=== PATIENT | male | born 1940 | race Hispanic/Latino ===

== ENCOUNTER 2017-04-01 15:34 | Inpatient (IN) | payer MEDICARE ==
--- NOTE | 2017-04-01 18:11 | CP.PCM.HP ---
History of Present Illness - History of Present Illness History of Present Illness: 76 yo male with history of COPD and peripheral neuropathy of the right foot admitted in [facility] on 03/29/2017 because of fracture of the right hip sustained after falling in his kitchen. He was transferred to [facility] for right THR to be done by Dr Will. Pt was medically cleared by Dr Be and also had cardiac clearance from Dr Mccracken. Present on Admission - Present on Admission Any Indicators Present on Admission: No History of DVT/PE: No History of Uncontrolled Diabetes: No Urinary Catheter: No Decubitus Ulcer Present: No Review of Systems - Review of Systems All systems: reviewed and no additional remarkable complaints except (aside from those mentioned above, 12 point system review were negative by me) Past Patient History - Infectious Disease Hx of Infectious Diseases: None - Tetanus Immunizations Tetanus Immunization: Unknown - Past Medical History & Family History Past Medical History?: Yes Past Family History: Reviewed and not pertinent - Past Social History Smoking Status: Heavy Smoker > 10 Cigarettes Daily Alcohol: > 2 Drinks/Day Drugs: Denies - CARDIAC Hx Cardiac Disorders: No - PULMONARY Hx Respiratory Disorders: Yes (SMOKES PPD) Hx Chronic Obstructive Pulmonary Disease (COPD): Yes Hx Pneumonia: Yes - NEUROLOGICAL Hx Neurological Disorder: Yes Other/Comment: 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) he took before - HEENT Hx Sinusitis: Yes - RENAL Hx Chronic Kidney Disease: No - ENDOCRINE/METABOLIC Hx Endocrine Disorders: No - HEMATOLOGICAL/ONCOLOGICAL Hx Blood Disorders: No - INTEGUMENTARY Hx Dermatological Problems: No - MUSCULOSKELETAL/RHEUMATOLOGICAL Hx Musculoskeletal Disorders: Yes Hx Falls: Yes (03-29-17) Hx Fractures: Yes (RIGHT FEMORAL NECK FX 03-29-17) Other/Comment: torn rotator cuff, right, 1994 - GASTROINTESTINAL Hx Gastrointestinal Disorders: No - GENITOURINARY/GYNECOLOGICAL Hx Genitourinary Disorders: No - PSYCHIATRIC Hx Psychophysiologic Disorder: Yes Hx Depression: Yes Hx Substance Use: No - SURGICAL HISTORY Hx Surgeries: No Hx Orthopedic Surgery: Yes (rotator cuff repair, 1994) - ANESTHESIA Hx Anesthesia: Yes Hx Anesthesia Reactions: No Hx Malignant Hyperthermia: No Meds Allergies/Adverse Reactions: Allergies Allergy/AdvReac Type Severity Reaction Status Date / Time Sulfa (Sulfonamide Allergy SHORTNESS Verified 03/29/17 22:00 Antibiotics) OF BREATH Physical Exam - Constitutional Appears: No Acute Distress - Head Exam Head Exam: ATRAUMATIC - Eye Exam Eye Exam: absent: Scleral icterus - ENT Exam ENT Exam: Mucous Membranes Moist - Neck Exam Neck exam: Negative for: Meningismus - Respiratory Exam Respiratory Exam: absent: Rhonchi, Wheezes, Respiratory Distress - Cardiovascular Exam Cardiovascular Exam: REGULAR RHYTHM, +S1, +S2 - GI/Abdominal Exam GI & Abdominal Exam: Soft. absent: Tenderness - Rectal Exam Rectal Exam: Deferred - Extremities Exam Extremities exam: Negative for: full ROM (limited ROM on right hip) - Neurological Exam Neurological exam: Alert, Oriented x3 - Psychiatric Exam Psychiatric exam: Normal Affect - Skin Skin Exam: Dry, Intact Results - Vital Signs Recent Vital Signs: Last Vital Signs Temp 97.9 F 04/01/17 17:32 Pulse 83 04/01/17 17:32 Resp 20 04/01/17 17:32 BP 106/69 04/01/17 17:32 Pulse Ox 95 04/01/17 17:32 Assessment & Plan (1) Hip fracture, right Status: Acute Comment: admit to telemetry. for right THR in am by Dr Will. NPO from midnight. cardiac clearance approved by Dr Mccracken. medical clearance given by Dr Be (2) COPD (chronic obstructive pulmonary disease) Status: Chronic Comment: asymptomatic (3) Alcoholism Status: Acute Comment: watch for alcohol withdrawal
[2017-04-01 18:25] VITALS: BMI 22.8
[2017-04-01] MEDS ORDERED: Albuterol HFA 90 mcg/actuation (8 g) IH PRN (18:43)
[2017-04-01] MEDS ORDERED: Albuterol 0.083% Inhal Sol (2.5 mg/3 mL) UD INH SCH (20:00)
[2017-04-01] MEDS: Oxycodone/Acetaminophen 5/325 mg Tab PO PRN (20:07)
[2017-04-02 06:20] LABS: BASO % 0.5 % (0.0-2.0); EOS # 0.1 K/uL (0.0-0.7); EOS % 1.8 % (0.0-4.0); LYMPH # 0.8 K/uL (1.0-4.3); LYMPH % 11.3 % (20.0-40.0); MEAN CORPUSCULAR HEMOGLOBIN 32.9 pg (27.0-31.0); MEAN CORPUSCULAR HGB CONC 33.6 g/dL (33.0-37.0); MEAN PLATELET VOLUME 7.8 fl (7.2-11.7); MONO # 0.9 K/uL (0.0-0.8); MONO % 12.9 % (0.0-10.0); NEUT # 5.1 K/uL (1.8-7.0); NEUT % 73.5 % (50.0-75.0); RED CELL DISTRIBUTION WIDTH 15.1 % (11.5-14.5); WHITE BLOOD COUNT 6.9 K/uL (4.8-10.8)
[2017-04-02 06:39] LABS: BLOOD UREA NITROGEN 9 mg/dl (9-20); CALCIUM 8.8 mg/dL (8.4-10.2); CARBON DIOXIDE 24 mmol/L (22-30); CHLORIDE 99 mmol/L (98-107); GFR AFRICAN-AMERICAN > 60; GLUCOSE,RANDOM 92 mg/dL (75-110); POTASSIUM 3.8 MMOL/L (3.6-5.0); SODIUM 131 mmol/l (132-148)
[2017-04-02] MEDS: Oxycodone/Acetaminophen 5/325 mg Tab PO PRN (07:10)
--- NOTE | 2017-04-02 07:12 | CP.PCM.CON ---
History of Present Illness - History of Present Illness History of Present Illness: MABEL: 76 yo male CC" Pain, deformity, inability to bear weight R lower ext HPI- pt a 76 yo who presents with pain and restricted ROM R hip after having susutained a fall saturday afternoon. Pt stabilized at [facility] opver the weekend and is tarnsferred to [facility] 2nd to prblems with [place] OR re: surgical table and equipment for anterior approach to hip arthroplasty Pt transferred to [facility] for definitve surg. Pt given 80 mg Lovemnox Saturday, Pt?Ptt is pending Cardilogic eval pending as well Past Patient History - Infectious Disease Hx of Infectious Diseases: None - Tetanus Immunizations Tetanus Immunization: Unknown - Past Medical History & Family History Past Medical History?: Yes Past Family History: Reviewed and not pertinent - Past Social History Smoking Status: Heavy Smoker > 10 Cigarettes Daily Alcohol: > 2 Drinks/Day Drugs: Denies - CARDIAC Hx Cardiac Disorders: No - PULMONARY Hx Respiratory Disorders: Yes (SMOKES PPD) Hx Chronic Obstructive Pulmonary Disease (COPD): Yes Hx Pneumonia: Yes - NEUROLOGICAL Hx Neurological Disorder: Yes Other/Comment: 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) he took before - HEENT Hx Sinusitis: Yes - RENAL Hx Chronic Kidney Disease: No - ENDOCRINE/METABOLIC Hx Endocrine Disorders: No - HEMATOLOGICAL/ONCOLOGICAL Hx Blood Disorders: No - INTEGUMENTARY Hx Dermatological Problems: No - MUSCULOSKELETAL/RHEUMATOLOGICAL Hx Musculoskeletal Disorders: Yes Hx Falls: Yes (03-29-17) Hx Fractures: Yes (RIGHT FEMORAL NECK FX 03-29-17) Other/Comment: torn rotator cuff, right, 1994 - GASTROINTESTINAL Hx Gastrointestinal Disorders: No - GENITOURINARY/GYNECOLOGICAL Hx Genitourinary Disorders: No - PSYCHIATRIC Hx Psychophysiologic Disorder: Yes Hx Depression: Yes Hx Substance Use: No - SURGICAL HISTORY Hx Surgeries: No Hx Orthopedic Surgery: Yes (rotator cuff repair, 1994) - ANESTHESIA Hx Anesthesia: Yes Hx Anesthesia Reactions: No Hx Malignant Hyperthermia: No Meds Allergies/Adverse Reactions: Allergies Allergy/AdvReac Type Severity Reaction Status Date / Time Sulfa (Sulfonamide Allergy SHORTNESS Verified 03/29/17 22:00 Antibiotics) OF BREATH - Medications Medications: Current Medications Albuterol (Ventolin Hfa 90 Mcg/Actuation (8 G)) 2 puff IH RQ6 PRN PRN Reason: Wheezing Albuterol Sulfate (Albuterol 0.083% Inhal Felecia (2.5 Mg/3 Ml) Ud) 2.5 mg INH RQID AV Buspirone HCl (Buspar) 5 mg PO TID AV Docusate Sodium (Colace) 100 mg PO DAILY AV Folic Acid (Folic Acid) 1 mg PO DAILY AV Lorazepam (Ativan) 0.5 mg IV Q6 PRN PRN Reason: Anxiety Oxycodone/Acetaminophen (Percocet 5/325 Mg Tab) 1 tab PO Q4 PRN PRN Reason: Pain, moderate (4-7) Stop: 04/04/17 21:01 Last Admin: 04/01/17 20:07 Dose: 1 tab Physical Exam - Additional Findings Additional findings: Musculoskeletal stance/gait- deferred ROM R hip defrred Pt with shortening and external roation R lower ext N/V intact Results - Vital Signs Recent Vital Signs: Last Vital Signs Temp 97.9 F 04/02/17 05:00 Pulse 91 H 04/02/17 05:00 Resp 18 04/02/17 05:00 BP 127/82 04/02/17 05:00 Pulse Ox 95 04/02/17 05:00 - Labs Result Diagrams: 04/02/17 04:30 04/02/17 04:30 Labs: Laboratory Results - last 24 hr 04/02/17 04/02/17 04:30 04:30 WBC 6.9 RBC 3.77 L Hgb 12.4 Hct 37.0 MCV 98.0 H MCH 32.9 H MCHC 33.6 RDW 15.1 H Plt Count 162 MPV 7.8 Neut % (Auto) 73.5 Lymph % (Auto) 11.3 L Runnels % (Auto) 12.9 H Eos % (Auto) 1.8 Baso % (Auto) 0.5 Neut # 5.1 Lymph # 0.8 L Runnels # 0.9 H Eos # 0.1 Baso # 0.0 Sodium 131 L Potassium 3.8 Chloride 99 Carbon Dioxide 24 Anion Gap 12 BUN 9 Creatinine 0.7 L Est GFR ( Amer) > 60 Est GFR (Non-Af Amer) > 60 Random Glucose 92 Calcium 8.8 - Impressions Impression: Xrays- Primary O/A R hip Gardens 4 subcapital fx R hip Assessment & Plan - Assessment and Plan (Free Text) Assessment: A- Gardens 4 subcapital fx R hip P- to OR for Bipolar vs Total Hip Replacment Pros cons risk and benfits discussed at length with pt and his grandson Del Possibility of mechanical failure/infection/thromboembolic disease/possibility lore secondary or tertiarysurg discussed NO Promises guarantees possiiblity of thromboembolic disease, bleeding, romario is discussed It should be noted that when pt arrived in [facility], no phone call was made to notify me of pts admission!!
[2017-04-02 07:15] LABS: PARTIAL THROMBOPLASTIN TIME 31.3 Seconds (25.6-37.1)
--- NOTE | 2017-04-02 10:10 | CP.PCM.CON ---
History of Present Illness - History of Present Illness History of Present Illness: THE PATIENT IS A 76 YEAR OLD MALE WHO HAS A HISTORY OF COPD AND PERIPHERAL NEUROPATHY WHO FELL AT HOME AND SUSTAINED A RIGHT HIP FRACTURE. HE WAS BROUGHT TO [facility] AND WAS TRANSFERRED TO [facility] FOR RIGHT HIP SURGERY BY DR DHALIWAL. HE STATES THAT HE FELL DUE TO THE PERIPHERAL NEUROPATHY AND DID NOT HAVE A LOC, CHEST PAIN OR PALPITATIONS PRIOR TO THE FALL. HE DENIES ANY HISTORY OF CAD, HYPERTENSION OR DM. CARDIOLOGY WAS ASKED BY DR DHALIWAL TO SEE HIM PRIOR TO SURGERY AND FOLLOW HIM IN THE HOSPITAL.. Past Patient History - Infectious Disease Hx of Infectious Diseases: None - Tetanus Immunizations Tetanus Immunization: Unknown - Past Medical History & Family History Past Medical History?: Yes Past Family History: Reviewed and not pertinent - Past Social History Smoking Status: Heavy Smoker > 10 Cigarettes Daily Alcohol: > 2 Drinks/Day Drugs: Denies - CARDIAC Hx Cardiac Disorders: No - PULMONARY Hx Respiratory Disorders: Yes (SMOKES PPD) Hx Chronic Obstructive Pulmonary Disease (COPD): Yes Hx Pneumonia: Yes - NEUROLOGICAL Hx Neurological Disorder: Yes Other/Comment: 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) he took before - HEENT Hx Sinusitis: Yes - RENAL Hx Chronic Kidney Disease: No - ENDOCRINE/METABOLIC Hx Endocrine Disorders: No - HEMATOLOGICAL/ONCOLOGICAL Hx Blood Disorders: No - INTEGUMENTARY Hx Dermatological Problems: No - MUSCULOSKELETAL/RHEUMATOLOGICAL Hx Musculoskeletal Disorders: Yes Hx Falls: Yes (03-29-17) Hx Fractures: Yes (RIGHT FEMORAL NECK FX 03-29-17) Other/Comment: torn rotator cuff, right, 1994 - GASTROINTESTINAL Hx Gastrointestinal Disorders: No - GENITOURINARY/GYNECOLOGICAL Hx Genitourinary Disorders: No - PSYCHIATRIC Hx Psychophysiologic Disorder: Yes Hx Depression: Yes Hx Substance Use: No - SURGICAL HISTORY Hx Surgeries: No Hx Orthopedic Surgery: Yes (rotator cuff repair, 1994) - ANESTHESIA Hx Anesthesia: Yes Hx Anesthesia Reactions: No Hx Malignant Hyperthermia: No Meds Allergies/Adverse Reactions: Allergies Allergy/AdvReac Type Severity Reaction Status Date / Time Sulfa (Sulfonamide Allergy SHORTNESS Verified 03/29/17 22:00 Antibiotics) OF BREATH - Medications Medications: Current Medications Albuterol (Ventolin Hfa 90 Mcg/Actuation (8 G)) 2 puff IH RQ6 PRN PRN Reason: Wheezing Albuterol Sulfate (Albuterol 0.083% Inhal Felecia (2.5 Mg/3 Ml) Ud) 2.5 mg INH RQID AV Buspirone HCl (Buspar) 5 mg PO TID [facility] Last Admin: 04/02/17 08:35 Dose: Not Given Docusate Sodium (Colace) 100 mg PO DAILY [facility] Last Admin: 04/02/17 08:35 Dose: Not Given Folic Acid (Folic Acid) 1 mg PO DAILY [facility] Last Admin: 04/02/17 08:36 Dose: Not Given Lorazepam (Ativan) 0.5 mg IV Q6 PRN PRN Reason: Anxiety Oxycodone/Acetaminophen (Percocet 5/325 Mg Tab) 1 tab PO Q4 PRN PRN Reason: Pain, moderate (4-7) Stop: 04/04/17 21:01 Last Admin: 04/02/17 07:10 Dose: 1 tab Physical Exam - Respiratory Exam Respiratory Exam: Clear to Auscultation Bilateral - Cardiovascular Exam Cardiovascular Exam: REGULAR RHYTHM, +S1, +S2 - Additional Findings Additional findings: EKG AT [facility] NSR CXR NAD Results - Vital Signs Recent Vital Signs: Last Vital Signs Temp 98 F 04/02/17 08:01 Pulse 94 H 04/02/17 08:01 Resp 18 04/02/17 08:01 BP 127/75 04/02/17 08:01 Pulse Ox 96 04/02/17 08:01 - Labs Result Diagrams: 04/02/17 04:30 04/02/17 04:30 Labs: Laboratory Results - last 24 hr 04/02/17 04/02/17 04/02/17 04:30 04:30 06:20 WBC 6.9 RBC 3.77 L Hgb 12.4 Hct 37.0 MCV 98.0 H MCH 32.9 H MCHC 33.6 RDW 15.1 H Plt Count 162 MPV 7.8 Neut % (Auto) 73.5 Lymph % (Auto) 11.3 L Esmeralda % (Auto) 12.9 H Eos % (Auto) 1.8 Baso % (Auto) 0.5 Neut # 5.1 Lymph # 0.8 L Esmeralda # 0.9 H Eos # 0.1 Baso # 0.0 PT 10.4 INR 1.0 APTT 31.3 Sodium 131 L Potassium 3.8 Chloride 99 Carbon Dioxide 24 Anion Gap 12 BUN 9 Creatinine 0.7 L Est GFR ( Amer) > 60 Est GFR (Non-Af Amer) > 60 Random Glucose 92 Calcium 8.8 Blood Type Antibody Screen Crossmatch BBK History Checked 04/02/17 06:55 WBC RBC Hgb Hct MCV MCH MCHC RDW Plt Count MPV Neut % (Auto) Lymph % (Auto) Esmeralda % (Auto) Eos % (Auto) Baso % (Auto) Neut # Lymph # Esmeralda # Eos # Baso # PT INR APTT Sodium Potassium Chloride Carbon Dioxide Anion Gap BUN Creatinine Est GFR ( Amer) Est GFR (Non-Af Amer) Random Glucose Calcium Blood Type O POSITIVE Antibody Screen Negative Crossmatch See Detail BBK History Checked No verified bt Assessment & Plan - Assessment and Plan (Free Text) Assessment: FALL WITH RIGHT HIP FRACTURE COPD PERIPHERAL NEUROPATHY Plan: THE PATIENT IS CLEARED FOR SURGERY FROM THE CARDIAC VIEWPOINT
[2017-04-02] MEDS ORDERED: Bacitracin Ointment 30 GM TUBE ONE (13:41)
[2017-04-02] MEDS ORDERED: Absorbable Gelatin Sponge Size 100 ONE (13:41)
[2017-04-02] MEDS ORDERED: Bupivacaine 0.5% Inj(30mL) ONE (13:41)
[2017-04-02] MEDS ORDERED: Lidocaine 1% Inj (20ml) ONE (13:41)
[2017-04-02] MEDS ORDERED: Thrombin Topical 5,000 IU Spray Kit ONE (13:41)
[2017-04-02] MEDS ORDERED: Succinylcholine 200 mg/10 ml Inj IV ONE (14:13)
[2017-04-02] MEDS ORDERED: Rocuronium 10 mg/ml (5 ml) ONE ×2 (14:13→16:27)
[2017-04-02] MEDS ORDERED: Etomidate 20 mg/10ml Inj IV ONE (14:13)
[2017-04-02] MEDS ORDERED: Lidocaine 4% (Laryng-O-Jet) Kit MM ONE (14:13)
[2017-04-02] MEDS ORDERED: Propofol 10 mg/ml Inj (20 ML) ONE (14:15)
[2017-04-02] MEDS ORDERED: Ropivacaine 0.5% 30ML IV ONE (14:26)
[2017-04-02] MEDS ORDERED: Lactated Ringer's 1,000 ML IV ONE ×4 (14:52→19:15)
[2017-04-02] MEDS ORDERED: Sodium Chloride 0.9% 500 ML IV ONE (14:52)
[2017-04-02] MEDS ORDERED: Sevoflurane - Inhalation Anesthetic Liq (250 ml) ONE (16:32)
--- NOTE | 2017-04-02 16:47 | PCM.ANESB3 ---
Femoral Nerve Block - Femoral Nerve Block Date of Procedure: 04/02/17 Anesthesiologist: Amalia Pre-Procedure Diagnosis: Right Hip Fracture Post-Procedure Diagnosis: Same Procedure Performed: Femoral Nerve Block Right - Procedure Femoral Nerve Block: The procedure was explained to the patient that it is for the post-operative pain management. Consent was obtained after a thorough discussion with the patient regarding the benefits and possible complications of local anesthetic block of the femoral nerve at the inguinal crease area. The patient was brought to the operating room and standard monitors were applied. Time-out was held with the circulating nurse to confirm the correct surgery and the appropriate block. Under general anesthesia, patient was placed in supine position with fully extended lower extremities and the ___right groin exposed. The femoral artery was then carefully palpated. The ultrasound transducer was then applied to this area in the transverse plane and the femoral nerve was visualized lateral to the femoral artery and underneath the fascia iliaca. After thorough identification, the inguinal crease area was prepped with Chloraprep At this point, a #22 gauge Stimuplex 4-inch needle was inserted immediately lateral to the femoral artery pulse at the inguinal crease and advanced perpendicularly. The needle was inserted to the ultrasound transducer in-plane towards the femoral nerve in a [id number] direction. Needle advancement was performed carefully under direct ultrasound visualization. Nerve stimulator was used and twitch of the quadriceps muscle was obtained at current of ___0.4__ MA. After negative aspiration, _2____cc of __0.375___% ropivicaine was injected and this was followed with ___48___ cc of ___0.375____ % ___ ___ropivicaine . Under ultrasound guidance the local anesthetics were observed spreading below fascia iliaca both around the femoral nerve as well as laterally beyond the anterior superior iliac spine in the direction of the lateral femoral cutaneous nerve. The needle was removed intact. The patient had stable vital signs throughout the procedure. The patient tolerated the femoral nerve block well with stable vital signs and was prepared for subsequent surgery.
[2017-04-02] MEDS ORDERED: HEMOSTATIC MATRIX 10 ML DIS.NEEDLE TOP ONE (17:02)
[2017-04-02] MEDS ORDERED: Neostigmine Methylsulfate 2 MG/2 ML ML IV ONE (18:29)
--- NOTE | 2017-04-02 18:41 | CP.PCM.PN ---
Subjective - Date & Time of Evaluation Date of Evaluation: 04/02/17 Time of Evaluation: 11:30 - Subjective Subjective: Patient was seen and evaluate bedside.elderly male of stated age, lying in bed in NAD , comfortable. with episodes of cough with no sputum production which patient states that is chronic due to his long history of smoking. Denies any pain at present.Appears pale. Hemodynamically stable, afebrile. No acute issues overnight Cardiac clearance in the chart patient for OR today Objective - Vital Signs/Intake and Output Vital Signs (last 24 hours): Temp Pulse Resp BP Pulse Ox 97.3 F L 64 20 109/67 96 04/02/17 16:00 04/02/17 16:00 04/02/17 16:00 04/02/17 16:00 04/02/17 16:00 - Medications Medications: Current Medications Albuterol (Ventolin Hfa 90 Mcg/Actuation (8 G)) 2 puff IH RQ6 PRN PRN Reason: Wheezing Albuterol Sulfate (Albuterol 0.083% Inhal Felecia (2.5 Mg/3 Ml) Ud) 2.5 mg INH RQID AV Buspirone HCl (Buspar) 5 mg PO TID [facility] Last Admin: 04/02/17 08:35 Dose: Not Given Docusate Sodium (Colace) 100 mg PO DAILY [facility] Last Admin: 04/02/17 08:35 Dose: Not Given Folic Acid (Folic Acid) 1 mg PO DAILY [facility] Last Admin: 04/02/17 08:36 Dose: Not Given Lorazepam (Ativan) 0.5 mg IV Q6 PRN PRN Reason: Anxiety Nicotine (Nicoderm Cq) 1 patch TD DAILY [facility] Oxycodone/Acetaminophen (Percocet 5/325 Mg Tab) 1 tab PO Q4 PRN PRN Reason: Pain, moderate (4-7) Stop: 04/04/17 21:01 Last Admin: 04/02/17 07:10 Dose: 1 tab - Labs Labs: 04/02/17 04:30 04/02/17 04:30 PT 10.4 Seconds (9.8-13.1) 04/02/17 06:20 INR 1.0 (0.9-1.2) 04/02/17 06:20 APTT 31.3 Seconds (25.6-37.1) 04/02/17 06:20 - Constitutional Appears: Non-toxic, No Acute Distress - Head Exam Head Exam: ATRAUMATIC, NORMAL INSPECTION, NORMOCEPHALIC - Eye Exam Eye Exam: EOMI, Normal appearance, PERRL Pupil Exam: NORMAL ACCOMODATION - ENT Exam ENT Exam: Mucous Membranes Moist, Normal Exam - Neck Exam Neck Exam: Full ROM, Normal Inspection - Respiratory Exam Respiratory Exam: Clear to Ausculation Bilateral. absent: Accessory Muscle Use , Prolonged Expiratory Phase, Wheezes, Respiratory Distress - Cardiovascular Exam Cardiovascular Exam: REGULAR RHYTHM, RRR, +S1, +S2. absent: JVD - GI/Abdominal Exam GI & Abdominal Exam: Tenderness, Normal Bowel Sounds. absent: Distended, Guarding, Soft, Rebound - Rectal Exam Rectal Exam: Deferred - Extremities Exam Extremities Exam: Normal Capillary Refill, Normal Inspection. absent: Calf Tenderness, Pedal Edema - Back Exam Back Exam: NORMAL INSPECTION - Neurological Exam Neurological Exam: Alert, Awake, CN II-XII Intact, Oriented x3 - Psychiatric Exam Psychiatric exam: Flat Affect - Skin Skin Exam: Dry, Pallor, Warm Assessment and Plan - Assessment and Plan (Free Text) Assessment: 76 yo male with history of COPD and peripheral neuropathy admitted in [facility] on 03/29/2017 because of fracture of the right hip sustained after falling in his kitchen. He was transferred to [facility] for right THR to be done by Dr Will. 1. Hip fracture, right post fall cardiac clearance in the chart for surgery NPO for OR today ortho Dr. Will on board Continue pain management DVt prophylaxis post op as per ortho 2. COPD (chronic obstructive pulmonary disease) patient is a chronic heavy smoker with chronic cough CXR preop showed no active disease monitor closely 3.Tobacco use disorder Started nicotine patch 4. Alcoholism patient was admitted on 03/29 with ETOH level 129 watch for alcohol withdrawal on Buspar 5. DVT prophylaxis SCD will start anticoagulation post op
[2017-04-02] MEDS ORDERED: Lactated Ringer's 1,000 ML IV SCH (19:24)
--- NOTE | 2017-04-02 19:37 | PCM.SURG1 ---
Surgeon's Initial Post Op Note - Surgeon's Notes Surgeon: Jose D [employer] Manager: Rubens Rico Type of Anesthesia: General Endo, Spinal, Block Regional Anesthesia Administered By: DR Boogie/DR mac Pre-Operative Diagnosis: Gardens 4 subcapital R hip fx. Primary O/A R hip Operative Findings: as above Post-Operative Diagnosis: as above Operation Performed: R THR. femoral; neck osteotomy. release iliopsoas tendon. autograft bone graft Specimen/Specimens Removed: bone/synovium Estimated Blood Loss: EBL {In ML}: 200 Blood Products Given: N/A Drains Used: No Drains Post-Op Condition: Good Date of Surgery/Procedure: 04/02/17 Time of Surgery/Procedure: 16:15 (itme in OR 1452/anetshesia induction time)
[2017-04-03] MEDS: ceFAZolin 1 GM in Sodium Chloride 0.9% 100 ML IVPB SCH ×2 (00:25→08:07)
[2017-04-03] MEDS: Oxycodone/Acetaminophen 5/325 mg Tab PO PRN ×2 (03:27→12:58)
[2017-04-03] MEDS ORDERED: Sodium Chloride 0.9% 500 ML IV ONE (04:28)
[2017-04-03] MEDS ORDERED: Lactated Ringer's 1,000 ML IV SCH ×2 (04:29→14:26)
[2017-04-03 05:28] LABS: HEMATOCRIT 28.1 % (35.0-51.0); MEAN CELL VOLUME 97.7 fl (80.0-94.0); MEAN CORPUSCULAR HEMOGLOBIN 33.4 pg (27.0-31.0); MEAN CORPUSCULAR HGB CONC 34.2 g/dL (33.0-37.0); RED CELL DISTRIBUTION WIDTH 14.9 % (11.5-14.5); WHITE BLOOD COUNT 5.2 K/uL (4.8-10.8)
[2017-04-03 05:29] LABS: ALB/GLOB RATIO 1.1 (1.0-2.1); ALKALINE PHOSPHATASE 39 U/L (38-126); ALT/SGPT 37 U/L (21-72); AST/SGOT 43 U/L (17-59); BILIRUBIN,TOTAL 0.9 mg/dl (0.2-1.3); BLOOD UREA NITROGEN 10 mg/dl (9-20); CARBON DIOXIDE 25 mmol/L (22-30); CHLORIDE 97 mmol/L (98-107); GFR AFRICAN-AMERICAN > 60; GLUCOSE,RANDOM 98 mg/dL (75-110); POTASSIUM 3.7 MMOL/L (3.6-5.0); SODIUM 130 mmol/l (132-148); TOTAL PROTEIN 4.7 G/DL (6.3-8.2)
--- NOTE | 2017-04-03 07:49 | CP.CCUPN ---
CCU Subjective - Physician Review Events Since Last Encounter (Free Text): 04/03/17 14:23 The patient was Seen/interviewed and examined by me at the bedside during ICU round, Medical records reviewed and Management issues were discussed and formulated with the house staff. Patient AAOx 3. Comfortable, NAD POD #1 S/p R THR, femoral neck osteotomy AND autograft bone graft This morning he feels well and denies any chest pain or SOB Afebrile, BP better today Seen by PT, OOB to chair CCU Objective - Vital Signs / Intake & Output Vital Signs (Last 4 hours): Vital Signs Temp Pulse Resp BP Pulse Ox 04/03/17 06:00 91 H 21 93/55 L 98 04/03/17 05:04 88 15 99/51 L 98 04/03/17 04:00 99.7 F H 94 H 20 84/47 L 97 Intake and Output (Last 8hrs): Intake & Output 04/02/17 04/03/17 04/03/17 22:59 06:59 14:59 Intake Total 2975 1025 Output Total 300 750 Balance 2675 275 Intake: IV 2975 525 Intake, Piggyback 500 Output: Urine 300 750 Urine, Voided 200 750 Other: # Voids Urine, Voided 2 1 - Physical Exam Head: Positive for: Atraumatic, Normocephalic Pupils: Positive for: PERRL Extroacular Muscles: Positive for: EOMI Conjunctiva: Positive for: Normal Mouth: Positive for: Moist Mucous Membranes Pharnyx: Positive for: Normal Nose (Internal): Positive for: Normal Inspection Neck: Positive for: Normal Range of Motion, Trachea Midline. Negative for: Meningeal Signs, MIDLINE TENDERNESS, Paraspinal Tenderness, JVD, Lymphadenopathy , Bruit, Other Respiratory/Chest: Positive for: Clear to Auscultation, Good Air Exchange. Negative for: Respiratory Distress, Accessory Muscle Use Cardiovascular: Positive for: Regular Rate and Rhythm, Normal S1, S2, Peripheal Pulses Present, Tachycardic. Negative for: Murmurs, Irregular Rhythm Abdomen: Positive for: Normal Bowel Sounds. Negative for: Tenderness, Distention Upper Extremity: Positive for: Normal Inspection, Normal ROM, NORMAL PULSES, Capillary Refill < 2s. Negative for: Cyanosis, Edema, Tenderness Lower Extremity: Positive for: Other (S/P R THR) Neurological: Positive for: GCS=15, CN II-XII Intact, Speech Normal, Motor Func Grossly Intact, Normal Sensory Function Psychiatric: Positive for: Alert, Oriented x 3, Normal Insight, Normal Concentration - Medications Active Medications: Active Medications Generic Name Dose Route Start Last Admin Trade Name Freq PRN Reason Stop Dose Admin Albuterol 2 puff 04/01/17 18:43 Ventolin Hfa 90 Mcg/Actuation (8 G) IH RQ6 PRN Wheezing Albuterol Sulfate 2.5 mg 04/01/17 20:00 Albuterol 0.083% Inhal Felecia (2.5 Mg/3 Ml) Ud INH RQID AV Buspirone HCl 5 mg 04/02/17 09:00 04/02/17 08:35 Buspar PO Not Given TID AV Docusate Sodium 100 mg 04/02/17 09:00 04/02/17 08:35 Colace PO Not Given DAILY AV Folic Acid 1 mg 04/02/17 09:00 04/02/17 08:36 Folic Acid PO Not Given DAILY AV Cefazolin Sodium 1 gm/ Sodium 100 mls @ 100 mls/hr 04/03/17 01:00 04/03/17 00 :25 Chloride IVPB 04/03/17 09:59 100 mls/hr Q8 AV Administration Lactated Ringer's 1,000 mls @ 150 mls/hr 04/03/17 04:29 04/03/17 04:40 Lactated Ringer's IV 150 mls/hr .Q6H40M AV Administration Lorazepam 0.5 mg 04/01/17 18:43 Ativan IV Q6 PRN Anxiety Morphine Sulfate 1 mg 04/02/17 19:24 04/02/17 20:54 Morphine IVP 1 mg Q10M PRN Administration Pain, moderate (4-7) Morphine Sulfate 2 mg 04/02/17 19:28 04/03/17 00:20 Morphine IVP 2 mg Q4 PRN Administration Pain, moderate (4-7) Nicotine 1 patch 04/03/17 09:00 Nicoderm Cq TD DAILY AV Oxycodone/Acetaminophen 1 tab 04/01/17 18:43 04/03/17 03:27 Percocet 5/325 Mg Tab PO 04/04/17 21:01 1 tab Q4 PRN Administration Pain, moderate (4-7) Thiamine HCl 100 mg 04/03/17 09:00 Vitamin B1 Tab PO DAILY AV - Patient Studies Lab Studies: Lab Studies 04/03/17 04/03/17 04/02/17 Range/Units 04:20 04:20 07:50 WBC 5.2 (4.8-10.8) K/uL RBC 2.88 L (4.40-5.90) Mil/uL Hgb 9.6 L D (12.0-18.0) g/dL Hct 28.1 L (35.0-51.0) % MCV 97.7 H (80.0-94.0) fl MCH 33.4 H (27.0-31.0) pg MCHC 34.2 (33.0-37.0) g/dL RDW 14.9 H (11.5-14.5) % Plt Count 130 (130-400) K/uL Sodium 130 L (132-148) mmol/l Potassium 3.7 (3.6-5.0) MMOL/L Chloride 97 L (98-107) mmol/L Carbon Dioxide 25 (22-30) mmol/L Anion Gap 12 (10-20) BUN 10 (9-20) mg/dl Creatinine 0.7 L (0.8-1.5) mg/dL Est GFR ( Amer) > 60 Est GFR (Non-Af Amer) > 60 Random Glucose 98 (75-110) mg/dL Calcium 8.0 L (8.4-10.2) mg/dL Total Bilirubin 0.9 (0.2-1.3) mg/dl AST 43 (17-59) U/L ALT 37 (21-72) U/L Alkaline Phosphatase 39 (38-126) U/L Total Protein 4.7 L (6.3-8.2) G/DL Albumin 2.5 L (3.5-5.0) g/dL Globulin 2.3 (2.2-3.9) gm/dL Albumin/Globulin Ratio 1.1 (1.0-2.1) Blood Type Blood Type Confirm O POSITIVE Antibody Screen Crossmatch BBK History Checked 04/02/17 Range/Units 06:55 WBC (4.8-10.8) K/uL RBC (4.40-5.90) Mil/uL Hgb (12.0-18.0) g/dL Hct (35.0-51.0) % MCV (80.0-94.0) fl MCH (27.0-31.0) pg MCHC (33.0-37.0) g/dL RDW (11.5-14.5) % Plt Count (130-400) K/uL Sodium (132-148) mmol/l Potassium (3.6-5.0) MMOL/L Chloride (98-107) mmol/L Carbon Dioxide (22-30) mmol/L Anion Gap (10-20) BUN (9-20) mg/dl Creatinine (0.8-1.5) mg/dL Est GFR ( Amer) Est GFR (Non-Af Amer) Random Glucose (75-110) mg/dL Calcium (8.4-10.2) mg/dL Total Bilirubin (0.2-1.3) mg/dl AST (17-59) U/L ALT (21-72) U/L Alkaline Phosphatase (38-126) U/L Total Protein (6.3-8.2) G/DL Albumin (3.5-5.0) g/dL Globulin (2.2-3.9) gm/dL Albumin/Globulin Ratio (1.0-2.1) Blood Type O POSITIVE Blood Type Confirm Antibody Screen Negative Crossmatch See Detail BBK History Checked No verified bt Laboratory Results - last 24 hr 04/02/17 04/02/17 04/03/17 06:55 07:50 04:20 WBC 5.2 RBC 2.88 L Hgb 9.6 L D Hct 28.1 L MCV 97.7 H MCH 33.4 H MCHC 34.2 RDW 14.9 H Plt Count 130 Sodium Potassium Chloride Carbon Dioxide Anion Gap BUN Creatinine Est GFR ( Amer) Est GFR (Non-Af Amer) Random Glucose Calcium Total Bilirubin AST ALT Alkaline Phosphatase Total Protein Albumin Globulin Albumin/Globulin Ratio Blood Type O POSITIVE Blood Type Confirm O POSITIVE Antibody Screen Negative Crossmatch See Detail BBK History Checked No verified bt 04/03/17 04:20 WBC RBC Hgb Hct MCV MCH MCHC RDW Plt Count Sodium 130 L Potassium 3.7 Chloride 97 L Carbon Dioxide 25 Anion Gap 12 BUN 10 Creatinine 0.7 L Est GFR ( Amer) > 60 Est GFR (Non-Af Amer) > 60 Random Glucose 98 Calcium 8.0 L Total Bilirubin 0.9 AST 43 ALT 37 Alkaline Phosphatase 39 Total Protein 4.7 L Albumin 2.5 L Globulin 2.3 Albumin/Globulin Ratio 1.1 Blood Type Blood Type Confirm Antibody Screen Crossmatch BBK History Checked Review of Systems - Cardiovascular Cardiovascular: absent: As Per HPI, Acrocyanosis, Chest Pain, Chest Pain at Rest , Chest Pain with Activity, Claudication, Diaphoresis, Dyspnea, Dyspnea on Exertion, Edema, Irregular Heart Rhythm, Pain Radiating to Arm/Neck/Jaw, Leg Edema, Leg Ulcers, Lightheadedness, Orthopnea, Palpitations, Paroxysmal Nocturnal Dyspnea, Pedal Edema, Radiating Pain, Rapid Heart Rate, Slow Heart Rate, Syncope, Other, UNREMARKABLE - Respiratory Respiratory: absent: As Per HPI, Cough, Dyspnea, Hemoptysis, Dyspnea on Exertion , Wheezing, Snoring, Stridor, Pain on Inspiration, Chest Congestion, Excessive Mucous Production, Change in Mucous Color, Pain with Coughing, Other, UNREMARKABLE Critical Care Progress Note - Extremities/Vascular Does the Patient have a Central Venous Catheter?: No Does the Patient need a Central Venous Catheter?: No Does the Patient have a King Catheter?: No Does the Patient need a King Catheter?: No - Nutrition Nutrition: Nutrition Category Date Time Status Regular Diet [DIET] Diets 04/02/17 Dinner Active Assessment/Plan (1) Hip fracture, right Current Visit: No Status: Acute Comment: POD #1 S/p R THR. Decrease IV Hydration to100 ml/hr Perioperative Antibiotics with IV Cefazolin X 3 doses Pain control with MORPHIN 2 mg IV Q4H PRN and Percocet 1 tab PO Q4 PRN (2) Tobacco abuse disorder Current Visit: Yes Status: Acute Comment: Nicotine patch TD DAILY (3) Alcoholism Current Visit: Yes Status: Acute (4) COPD (chronic obstructive pulmonary disease) Current Visit: Yes Status: Chronic Comment: Albuterol 2 puff IH RQ6 PRN (5) Prophylactic measure Current Visit: Yes Status: Acute Comment: Started on Lovenox 40 mg SC DAILY
--- NOTE | 2017-04-03 09:40 | CP.PCM.PN ---
Subjective - Date & Time of Evaluation Date of Evaluation: 04/03/17 Time of Evaluation: 11:30 - Subjective Subjective: Patient seen and examined bedside. Complains of pain to right hip but was able to participate with PT today .With episode of hypotension overnight SBP 80 requiring 4 l fluid resuscitation. tachycardic at present HR 103, afebrile. Denies any CP or SOB, Bp 107/61 hgb dropped from 12.3-- 9.6 Objective - Vital Signs/Intake and Output Vital Signs (last 24 hours): Temp Pulse Resp BP Pulse Ox 97.8 F 108 H 28 H 107/61 97 04/03/17 08:00 04/03/17 08:00 04/03/17 08:00 04/03/17 08:00 04/03/17 08:00 Intake and Output: 04/03/17 04/03/17 06:59 18:59 Intake Total 2000 Output Total 1050 Balance 950 - Medications Medications: Current Medications Albuterol (Ventolin Hfa 90 Mcg/Actuation (8 G)) 2 puff IH RQ6 PRN PRN Reason: Wheezing Albuterol Sulfate (Albuterol 0.083% Inhal Felecia (2.5 Mg/3 Ml) Ud) 2.5 mg INH RQID AV Buspirone HCl (Buspar) 5 mg PO TID [facility] Last Admin: 04/03/17 08:09 Dose: 5 mg Docusate Sodium (Colace) 100 mg PO DAILY [facility] Last Admin: 04/03/17 08:09 Dose: 100 mg Folic Acid (Folic Acid) 1 mg PO DAILY [facility] Last Admin: 04/03/17 08:08 Dose: 1 mg Cefazolin Sodium 1 gm/ Sodium (Chloride) 100 mls @ 100 mls/hr IVPB Q8 [facility] Stop: 04/03/17 09:59 Last Admin: 04/03/17 08:07 Dose: 100 mls/hr Lactated Ringer's (Lactated Ringer's) 1,000 mls @ 150 mls/hr IV .Q6H40M [facility] Last Admin: 04/03/17 04:40 Dose: 150 mls/hr Lorazepam (Ativan) 0.5 mg IV Q6 PRN PRN Reason: Anxiety Morphine Sulfate (Morphine) 1 mg IVP Q10M PRN PRN Reason: Pain, moderate (4-7) Last Admin: 04/02/17 20:54 Dose: 1 mg Morphine Sulfate (Morphine) 2 mg IVP Q4 PRN PRN Reason: Pain, moderate (4-7) Last Admin: 04/03/17 07:56 Dose: 2 mg Nicotine (Nicoderm Cq) 1 patch TD DAILY [facility] Last Admin: 04/03/17 08:06 Dose: 1 patch Oxycodone/Acetaminophen (Percocet 5/325 Mg Tab) 1 tab PO Q4 PRN PRN Reason: Pain, moderate (4-7) Stop: 04/04/17 21:01 Last Admin: 04/03/17 03:27 Dose: 1 tab Thiamine HCl (Vitamin B1 Tab) 100 mg PO DAILY [facility] Last Admin: 04/03/17 08:08 Dose: 100 mg - Labs Labs: 04/03/17 04:20 04/03/17 04:20 PT 10.4 Seconds (9.8-13.1) 04/02/17 06:20 INR 1.0 (0.9-1.2) 04/02/17 06:20 APTT 31.3 Seconds (25.6-37.1) 04/02/17 06:20 - Constitutional Appears: Non-toxic, No Acute Distress - Head Exam Head Exam: ATRAUMATIC, NORMAL INSPECTION, NORMOCEPHALIC - Eye Exam Eye Exam: EOMI, Normal appearance, PERRL Pupil Exam: NORMAL ACCOMODATION - ENT Exam ENT Exam: Mucous Membranes Moist, Normal Exam - Neck Exam Neck Exam: Full ROM, Normal Inspection - Respiratory Exam Respiratory Exam: Clear to Ausculation Bilateral, NORMAL BREATHING PATTERN. absent: Rhonchi, Wheezes - Cardiovascular Exam Cardiovascular Exam: Tachycardia, REGULAR RHYTHM, +S1, +S2. absent: JVD - GI/Abdominal Exam GI & Abdominal Exam: Soft, Normal Bowel Sounds. absent: Distended, Guarding, Tenderness, Rebound - Rectal Exam Rectal Exam: Deferred - Extremities Exam Extremities Exam: absent: Calf Tenderness Additional comments: right hip surgical incision with acquqcell dressing , clean and intact - Back Exam Back Exam: NORMAL INSPECTION - Neurological Exam Neurological Exam: Alert, Awake, CN II-XII Intact, Oriented x3 - Psychiatric Exam Psychiatric exam: Normal Affect - Skin Skin Exam: Dry, Pallor, Warm Assessment and Plan - Assessment and Plan (Free Text) Assessment: 76 yo male with history of COPD and peripheral neuropathy admitted in [facility] on 03/29/2017 because of fracture of the right hip sustained after falling in his kitchen. He was transferred to [facility] for right THR to be done by Dr Will. Today post op #1 . Patient monitored in ICU overnight. With episode of hypotension requiring fluid resuscitation post op . At present hemodynamically stable, complaining of pain to right hip 1. Hip fracture, right post fall s/p ORIF day 1 complains of pain to right hip continue pain management ortho Dr. Will following Continu[facility] PT as per ortho recommendations Incentive spirometry Started Lovenox for DVT prophylaxis Plan to D/c to TCU for physical therapy 2. COPD (chronic obstructive pulmonary disease) patient is a chronic heavy smoker with chronic cough CXR preop showed no active disease Repeat CXr today showed Prominent lung markings and suspicious for focal small infiltrate at the right lower lung. Hyperinflation of the lungs suspicious for COPD. Continue close monitoring o2 PRN strated mucinex and Duoneb RTC No need for antibiotics since there is no signs of over infection 3.Tobacco use disorder Started nicotine patch 4. Alcoholism patient was admitted on 03/29 with ETOH level 129 watch for alcohol withdrawal on Buspar 5. Acute blood loss anemia post op Hgb dropped from 12 .4-- 9.6 Continue monitor for now 6. DVT prophylaxis SCD started Lovenox
--- NOTE | 2017-04-03 10:40 | RAD ---
PROCEDURE: Right Hip Radiographs. HISTORY: s/p R THR COMPARISON: None. FINDINGS: BONES: Status post right hip arthroplasty. The hardware is seen at appropriate position. Status post resection of the right femur neck and head. Postsurgical changes seen adjacent to the prosthesis. JOINTS: Degenerative changes seen at the left hip joint. No evidence of dislocation. Arthritic changes are also seen at the pubic symphysis. SOFT TISSUES: Normal. OTHER FINDINGS: None. IMPRESSION: Status post right hip arthroplasty. The hardware is seen at appropriate position.
[2017-04-03] MEDS ORDERED: ceFAZolin 1 GM in Sodium Chloride 0.9% 100 ML IVPB SCH (12:01)
--- NOTE | 2017-04-03 12:04 | RAD ---
PROCEDURE: CHEST RADIOGRAPH, 1 VIEW HISTORY: smoker with cough COMPARISON: None available. FINDINGS: LUNGS: Prominent reticular opacities in the lungs. There is suspicious for small infiltrate at the right lower lung. Hyperinflation of the lungs suspicious for COPD PLEURA: No pneumothorax or pleural fluid seen. CARDIOVASCULAR: Normal. OSSEOUS STRUCTURES: No significant abnormalities. VISUALIZED UPPER ABDOMEN: Normal. OTHER FINDINGS: None. IMPRESSION: Prominent lung markings and suspicious for focal small infiltrate at the right lower lung. Hyperinflation of the lungs suspicious for COPD.
--- NOTE | 2017-04-03 13:30 | CP.PCM.PN ---
Subjective - Date & Time of Evaluation Date of Evaluation: 04/03/17 Time of Evaluation: 12:00 - Subjective Subjective: NO CHEST PAIN OR SOB ONLY PAIN AT SURGICAL SITE Objective - Vital Signs/Intake and Output Vital Signs (last 24 hours): Temp Pulse Resp BP Pulse Ox 98.7 F 94 H 26 H 95/58 L 99 04/03/17 12:00 04/03/17 12:00 04/03/17 12:00 04/03/17 12:00 04/03/17 12:00 Intake and Output: 04/03/17 04/03/17 06:59 18:59 Intake Total 2000 770 Output Total 1050 1 Balance 950 769 - Medications Medications: Current Medications Albuterol (Ventolin Hfa 90 Mcg/Actuation (8 G)) 2 puff IH RQ6 PRN PRN Reason: Wheezing Albuterol Sulfate (Albuterol 0.083% Inhal Felecia (2.5 Mg/3 Ml) Ud) 2.5 mg INH RQID AV Albuterol/Ipratropium (Duoneb 3 Mg/0.5 Mg (3 Ml) Ud) 3 ml INH RQID AV Buspirone HCl (Buspar) 5 mg PO TID [facility] Last Admin: 04/03/17 13:00 Dose: 5 mg Docusate Sodium (Colace) 100 mg PO DAILY [facility] Last Admin: 04/03/17 08:09 Dose: 100 mg Enoxaparin Sodium (Lovenox) 40 mg SC DAILY [facility] PRN Reason: Protocol Folic Acid (Folic Acid) 1 mg PO DAILY [facility] Last Admin: 04/03/17 08:08 Dose: 1 mg Guaifenesin/Dextromethorphan (Mucinex-Dm 600-30 Mg) 1 tab PO BID [facility] Lactated Ringer's (Lactated Ringer's) 1,000 mls @ 150 mls/hr IV .Q6H40M [facility] Last Admin: 04/03/17 04:40 Dose: 150 mls/hr Lorazepam (Ativan) 0.5 mg IV Q6 PRN PRN Reason: Anxiety Morphine Sulfate (Morphine) 1 mg IVP Q10M PRN PRN Reason: Pain, moderate (4-7) Last Admin: 04/02/17 20:54 Dose: 1 mg Morphine Sulfate (Morphine) 2 mg IVP Q4 PRN PRN Reason: Pain, moderate (4-7) Last Admin: 04/03/17 07:56 Dose: 2 mg Nicotine (Nicoderm Cq) 1 patch TD DAILY [facility] Last Admin: 04/03/17 08:06 Dose: 1 patch Oxycodone/Acetaminophen (Percocet 5/325 Mg Tab) 1 tab PO Q4 PRN PRN Reason: Pain, moderate (4-7) Stop: 04/04/17 21:01 Last Admin: 04/03/17 12:58 Dose: 1 tab Thiamine HCl (Vitamin B1 Tab) 100 mg PO DAILY [facility] Last Admin: 04/03/17 08:08 Dose: 100 mg - Labs Labs: 04/03/17 04:20 04/03/17 04:20 PT 10.4 Seconds (9.8-13.1) 04/02/17 06:20 INR 1.0 (0.9-1.2) 04/02/17 06:20 APTT 31.3 Seconds (25.6-37.1) 04/02/17 06:20 - Respiratory Exam Respiratory Exam: Clear to Ausculation Bilateral - Cardiovascular Exam Cardiovascular Exam: REGULAR RHYTHM, +S1, +S2 - Additional Findings Additional findings: KNIFEMAN NSR DR DHALIWAL'S SURGICAL NOTE REVIEWED H/H 04/25 Assessment and Plan - Assessment and Plan (Free Text) Assessment: RIGHT THR COPD Plan: CONTINUE BRONCHODILATORS, LOVENOX, PAIN MEDS AND THIAMINE
[2017-04-03] MEDS: Enoxaparin 40 mg Syringe SC SCH (15:00)
[2017-04-03] MEDS: Albuterol-Ipratrop 3 mg / 0.5 (3 ml) UD INH SCH (15:39)
[2017-04-03] MEDS: Sodium Chloride 0.9% 1,000 ML IV SCH (16:00)
[2017-04-03] MEDS: guaiFENesin-DM 600-30 mg ER Tab PO SCH (17:03)
[2017-04-04] MEDS: Oxycodone/Acetaminophen 5/325 mg Tab PO PRN ×2 (01:03→08:22)
[2017-04-04] MEDS: Sodium Chloride 0.9% 1,000 ML IV SCH (02:15)
[2017-04-04 06:44] LABS: HEMATOCRIT 25.1 % (35.0-51.0); MEAN CELL VOLUME 97.2 fl (80.0-94.0); MEAN CORPUSCULAR HEMOGLOBIN 33.5 pg (27.0-31.0); MEAN CORPUSCULAR HGB CONC 34.5 g/dL (33.0-37.0); RED CELL DISTRIBUTION WIDTH 14.2 % (11.5-14.5); WHITE BLOOD COUNT 8.5 K/uL (4.8-10.8)
[2017-04-04 07:01] LABS: BLOOD UREA NITROGEN 11 mg/dl (9-20); CALCIUM 7.7 mg/dL (8.4-10.2); CARBON DIOXIDE 24 mmol/L (22-30); CHLORIDE 98 mmol/L (98-107); GFR AFRICAN-AMERICAN > 60; GLUCOSE,RANDOM 98 mg/dL (75-110); POTASSIUM 3.6 MMOL/L (3.6-5.0); SODIUM 127 mmol/l (132-148)
[2017-04-04] MEDS: Albuterol-Ipratrop 3 mg / 0.5 (3 ml) UD INH SCH ×3 (07:51→15:29)
[2017-04-04] MEDS: Enoxaparin 40 mg Syringe SC SCH (08:18)
[2017-04-04] MEDS: guaiFENesin-DM 600-30 mg ER Tab PO SCH (08:18)
--- NOTE | 2017-04-04 08:41 | OP ---
PROCEDURE DATE: 04/02/2017 PREOPERATIVE DIAGNOSES: 1. Garden's IV subcapital fracture of the right hip. 2. Primary osteoarthritis of the right hip. POSTOPERATIVE DIAGNOSES: 1. Garden's IV subcapital fracture of the right hip. 2. Primary osteoarthritis of the right hip. PROCEDURE: 1. Right total hip replacement arthroplasty, anterior approach. 2. Femoral neck osteotomy. 3. Release of psoas tendon. 4. Autograft bone graft to the acetabulum. SURGEON: Corey Will MD BEFORE AND AFTER SCHOOL DAYCARE WORKER: Yoana Pettit, certified registered nursing first mate. TYPE OF ANESTHESIA: Spinal, regional and general anesthesia, Dr. Gray and Dr. Holland. ESTIMATED BLOOD LOSS: 200 mL COMPLICATIONS: No. DRAINS: No drains. OPERATIVE INDICATION: Allan Flores is a 76-year-old gentleman who had sustained a fall on Saturday and the patient presented to [facility] and the patient was treated and stabilized in hospital. The patient was transferred to [facility] ([facility] The patient wanted to take advantage of the anterior approach hip arthroplasty, which could not be done in [place]. Pros, cons, risks, and benefits of total hip replacement arthroplasty was discussed. Possibility of mechanical failure, infection, thromboembolic disease, secondary or tertiary surgery were discussed. The patient can only understand the discomfort and wished the surgery to be accomplished. The concept of alternative procedures including benign neglect, open reduction internal fixation was discussed. The blood supply to the femoral head is discussed. The concept of the complete destruction of the blood supply and Garden's IV subcapital hip fracture was discussed. The patient elects for total hip replacement arthroplasty and noting that he had, had hip pain prior secondary to primary osteoarthritis. OPERATIVE PROCEDURE: After having obtained informed consent, after having identified side, site, and procedure and a critical pause/time-out, after satisfactory induction of the spinal, regional and general anesthetic by Dr. Holland, the patient identified as Allan Flores, is placed in the [facility] traction positioner. The left lower extremity is placed in one-way traction. The right upper extremity is placed over the chest. All bony prominences are well padded. A great care was taken to the security of the endotracheal tube. Under the surgeon's direction, the fluoroscope was positioned, video images were generated and therapeutic decisions were made therefrom. At this point in time, after sterilely prepping and draping, after having identified side, site, and procedure and a critical pause/time-out, after the satisfactory induction of the anesthetic, the patient identified as Allan Flores in the supine position with all bony prominences well padded. The right lower extremity was prepped and free-draped in usual fashion for extremity surgery. The great care was taken to define and protect all bony prominence well padded. Preoperative planning is supplemented by intraoperative virtual planning as to the neck length and the neck osteotomy. This is why the femoral neck osteotomy deserves reorganization in a separate procedure. This having been accomplished. After sterilely prepping and draping the right lower extremity and after having identified the fracture and accomplishing preoperative and intraoperative planning under the surgeon's direction, the fluoroscope was positioned. Video images were generated and therapeutic decisions were made therefrom. At this point in time a 4.5-inch incision is described 2 fingerbreadth distal to the ASIS superficial to the tensor fascia femoris muscle. The Arevalo-Kelley interval was identified and the Weider interval is next identified. Incision was carried down to the skin, subcutaneous tissue after having identified site, side and procedure and critical pause/time-out. This having been accomplished the fascia. Only tensor fascia femoris is divided. The tensor fascia femoris muscle was taken down and the Medacta retractor was placed. The posterior aspect of the rectus femores and the fascia was identified, which was divided. At this point in time, the Medacta retractor was placed deeper and it should be noted that the fat pad superficial to the reflected head of rectus femores is excised and the rectus femoris origin is released. This having been accomplished. Next, fascia was divided and the anterior branch of the lateral femoral circumflex vessels are identified. Lateral femoral circumflex are controlled and the anterior branch is controlled as well with the Aquamantys. This having been accomplished, fat on the anterior aspect of the hip capsule is debrided and the Medacta retractors are placed medially and laterally. This having been accomplished. A triangular capsular flap is elevated extending with the traction externally then internally rotated. The capsular flap is of the acetabulum and down to the lesser trochanter. This having been accomplished. It is both parallel to the intertubercular eminence and this is elevated and intact. At this point in time, the Medacta retractors are placed deep and this having been accomplished. The traction is applied and the neck is rotated. The femoral head is removed and the femoral neck osteotomy is accomplished at this point in time leaving approximately 18 mm above the lesser trochanter. This having been accomplished, the labrum is excised, the and hemostasis is controlled. Attention is turned to the acetabulum at this point in time. Reaming accomplished beginning at 52 mm connecting through 58 mm. The cup is placed at approximately 45 degrees of abduction and 10 degrees of inversion. At this point in time, reaming has been accomplished, reamings were denuded of articular cartilage and the reamings were used autograft bone graft. This having been accomplished. The trial cup is placed under the surgeon's direction, the fluoroscope was positioned. The cup was inserted and impacted in the appropriate abduction and anteversion. This having been accomplished, attention was turned to the femur, it should be noted that autograft bone grafting to the acetabulum was carried out prior to cup impaction. At this point in time, the femoral release are accomplished. The pubofemoral ligament is released with the femur in 90 degrees of external rotation. The pubofemoral ligament was released. At this point in time, the ischiofemoral ligament is released as is the iliofemoral release in the conjoint tendon. This having been accomplished. The proximal femur is delivered and the bridge of the bone between the neck and the trochanter is removed. This having been accomplished, the canal was found with sequential broaching to the #5 broach to accomplish. This having been accomplished. The neutral head is placed with the 58 mm polyethylene outer bearing, the hip was reduced and found to be unstable. The hip is found to be short. Under the surgeon's direction, the fluoroscope was positioned and the hip was found to be short and lax. The hip was reduced and found to stable in all plains. At this point in time, a #5 femoral component is impacted with 5 metallic head with the 58 mm outer baring. This was reduced and the hip is found to be stable in all planes. The wound is thoroughly irrigated. Hemostasis is controlled with the Aquamantys and with the hemostatic. This having been accomplished, hemostasis was controlled with the Aquamantys. Closures in layers 0 Quill for the facia on the tensor fascia femoris, 2-0 Quill and 2-0 Vicryl to the subcutaneous tissue. Britt for skin and compression dressing is accomplished. It should be noted that verification of position is offered AP image intensification views and a recovery AP and lateral image intensification views. Position was found to be excellent. Compression dressing and Aquacel dressing is applied. Corey Will MD
--- NOTE | 2017-04-04 10:25 | CP.PCM.PN ---
Subjective - Date & Time of Evaluation Date of Evaluation: 04/04/17 Time of Evaluation: 09:30 - Subjective Subjective: NO COMPLAINTS EXCEPT FOR SURGICAL SITE PAIN Objective - Vital Signs/Intake and Output Vital Signs (last 24 hours): Temp Pulse Resp BP Pulse Ox 98.1 F 99 H 18 105/67 96 04/04/17 08:40 04/04/17 08:40 04/04/17 08:40 04/04/17 08:40 04/04/17 08:40 Intake and Output: 04/04/17 04/04/17 06:59 18:59 Intake Total 1490 Balance 1490 - Medications Medications: Current Medications Albuterol (Ventolin Hfa 90 Mcg/Actuation (8 G)) 2 puff IH RQ6 PRN PRN Reason: Wheezing Albuterol Sulfate (Albuterol 0.083% Inhal Felecia (2.5 Mg/3 Ml) Ud) 2.5 mg INH RQID AV Albuterol/Ipratropium (Duoneb 3 Mg/0.5 Mg (3 Ml) Ud) 3 ml INH RQID [facility] Last Admin: 04/04/17 07:51 Dose: 3 ml Buspirone HCl (Buspar) 5 mg PO TID [facility] Last Admin: 04/04/17 08:15 Dose: 5 mg Docusate Sodium (Colace) 100 mg PO DAILY [facility] Last Admin: 04/04/17 08:15 Dose: 100 mg Enoxaparin Sodium (Lovenox) 40 mg SC DAILY AV PRN Reason: Protocol Last Admin: 04/04/17 08:18 Dose: 40 mg Folic Acid (Folic Acid) 1 mg PO DAILY [facility] Last Admin: 04/04/17 08:18 Dose: 1 mg Guaifenesin/Dextromethorphan (Mucinex-Dm 600-30 Mg) 1 tab PO BID [facility] Last Admin: 04/04/17 08:18 Dose: 1 tab Sodium Chloride (Sodium Chloride 0.9%) 1,000 mls @ 80 mls/hr IV .[id number] [facility] Stop: 04/04/17 13:36 Last Admin: 04/04/17 02:15 Dose: 80 mls/hr Lorazepam (Ativan) 0.5 mg IV Q6 PRN PRN Reason: Anxiety Last Admin: 04/03/17 19:54 Dose: 0.5 mg Morphine Sulfate (Morphine) 1 mg IVP Q10M PRN PRN Reason: Pain, moderate (4-7) Last Admin: 04/02/17 20:54 Dose: 1 mg Morphine Sulfate (Morphine) 2 mg IVP Q4 PRN PRN Reason: Pain, moderate (4-7) Last Admin: 04/03/17 07:56 Dose: 2 mg Nicotine (Nicoderm Cq) 1 patch TD DAILY [facility] Last Admin: 04/04/17 08:14 Dose: 1 patch Oxycodone/Acetaminophen (Percocet 5/325 Mg Tab) 1 tab PO Q4 PRN PRN Reason: Pain, moderate (4-7) Stop: 04/04/17 21:01 Last Admin: 04/04/17 08:22 Dose: 1 tab Thiamine HCl (Vitamin B1 Tab) 100 mg PO DAILY [facility] Last Admin: 04/04/17 08:15 Dose: 100 mg - Labs Labs: 04/04/17 05:00 04/04/17 05:00 PT 10.4 Seconds (9.8-13.1) 04/02/17 06:20 INR 1.0 (0.9-1.2) 04/02/17 06:20 APTT 31.3 Seconds (25.6-37.1) 04/02/17 06:20 - Respiratory Exam Respiratory Exam: Clear to Ausculation Bilateral - Cardiovascular Exam Cardiovascular Exam: REGULAR RHYTHM, +S1, +S2 - Additional Findings 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
[2017-04-04] MEDS ORDERED: Benzocaine/Menthol (Cepacol) Lozenge PO PRN (12:41)
[2017-04-04] MEDS ORDERED: Benzocaine/Menthol (Cepacol) Lozenge PO ONE (13:00)
[2017-04-04] MEDS ORDERED: Pneumococcal 23-Valent Vaccine IM ONE (14:12)
--- NOTE | 2017-04-04 14:52 | RAD ---
PROCEDURE: Fluoroscopy over 1 hour HISTORY: Fluoroscopy COMPARISON: None TECHNIQUE: Standard protocol for this study/examination. FINDINGS: Three fluoroscopic images submitted open reduction internal fixation subcapital neck fracture. IMPRESSION: Unspecified amount of fluoro time utilized
[2017-04-04] MEDS ORDERED: Sodium Chloride 0.9% 1,000 ML IV SCH (15:15)
--- NOTE | 2017-04-04 15:21 | CP.PCM.DIS ---
Provider - Provider Date of Admission: 04/01/17 18:38 Attending physician: Jason Matta MD Primary care physician: Amrik Be MD Consults: Dr. Will, orthopedics Dr. Busby, cardiology Dr. Tapia, critical care Time Spent in preparation of Discharge (in minutes): 30 Diagnosis - Discharge Diagnosis (1) Hip fracture, right Status: Acute Priority: High (2) Prophylactic measure Status: Acute Priority: Medium (3) Tobacco abuse disorder Status: Chronic Priority: Medium (4) COPD (chronic obstructive pulmonary disease) Status: Chronic Priority: Medium Hospital Course - Lab Results Lab Results: Most Recent Lab Values WBC 8.5 K/uL (4.8-10.8) D 04/04/17 05:00 RBC 2.58 Mil/uL (4.40-5.90) L 04/04/17 05:00 Hgb 8.7 g/dL (12.0-18.0) L 04/04/17 05:00 Hct 25.1 % (35.0-51.0) L 04/04/17 05:00 MCV 97.2 fl (80.0-94.0) H 04/04/17 05:00 MCH 33.5 pg (27.0-31.0) H 04/04/17 05:00 MCHC 34.5 g/dL (33.0-37.0) 04/04/17 05:00 RDW 14.2 % (11.5-14.5) 04/04/17 05:00 Plt Count 145 K/uL (130-400) 04/04/17 05:00 MPV 7.8 fl (7.2-11.7) 04/02/17 04:30 Neut % (Auto) 73.5 % (50.0-75.0) 04/02/17 04:30 Lymph % (Auto) 11.3 % (20.0-40.0) L 04/02/17 04:30 Wilkinson % (Auto) 12.9 % (0.0-10.0) H 04/02/17 04:30 Eos % (Auto) 1.8 % (0.0-4.0) 04/02/17 04:30 Baso % (Auto) 0.5 % (0.0-2.0) 04/02/17 04:30 Neut # 5.1 K/uL (1.8-7.0) 04/02/17 04:30 Lymph # 0.8 K/uL (1.0-4.3) L 04/02/17 04:30 Wilkinson # 0.9 K/uL (0.0-0.8) H 04/02/17 04:30 Eos # 0.1 K/uL (0.0-0.7) 04/02/17 04:30 Baso # 0.0 K/uL (0.0-0.2) 04/02/17 04:30 PT 10.4 Seconds (9.8-13.1) 04/02/17 06:20 INR 1.0 (0.9-1.2) 04/02/17 06:20 APTT 31.3 Seconds (25.6-37.1) 04/02/17 06:20 Sodium 127 mmol/l (132-148) L 04/04/17 05:00 Potassium 3.6 MMOL/L (3.6-5.0) 04/04/17 05:00 Chloride 98 mmol/L (98-107) 04/04/17 05:00 Carbon Dioxide 24 mmol/L (22-30) 04/04/17 05:00 Anion Gap 9 (10-20) L 04/04/17 05:00 BUN 11 mg/dl (9-20) 04/04/17 05:00 Creatinine 0.7 mg/dL (0.8-1.5) L 04/04/17 05:00 Est GFR ( Amer) > 60 04/04/17 05:00 Est GFR (Non-Af Amer) > 60 04/04/17 05:00 Random Glucose 98 mg/dL (75-110) 04/04/17 05:00 Calcium 7.7 mg/dL (8.4-10.2) L 04/04/17 05:00 Total Bilirubin 0.9 mg/dl (0.2-1.3) 04/03/17 04:20 AST 43 U/L (17-59) 04/03/17 04:20 ALT 37 U/L (21-72) 04/03/17 04:20 Alkaline Phosphatase 39 U/L (38-126) 04/03/17 04:20 Total Protein 4.7 G/DL (6.3-8.2) L 04/03/17 04:20 Albumin 2.5 g/dL (3.5-5.0) L 04/03/17 04:20 Globulin 2.3 gm/dL (2.2-3.9) 04/03/17 04:20 Albumin/Globulin Ratio 1.1 (1.0-2.1) 04/03/17 04:20 Blood Type O POSITIVE 04/02/17 06:55 Blood Type Confirm O POSITIVE 04/02/17 07:50 Antibody Screen Negative 04/02/17 06:55 Crossmatch See Detail 04/02/17 06:55 BBK History Checked No verified bt 04/02/17 06:55 - Hospital Course Hospital Course: This is a 76 yo male with history of COPD and peripheral neuropathy admitted in [facility] on 03/29/2017 because of fracture of the right hip sustained after falling in his kitchen. He was transferred to [facility] for right THR to be done by Dr Will. Today post op #2 . At present hemodynamically stable, he is continuing to complain of pain to his right hip. He was noted to have a hemoglobin drop from 12.4 -> 9.6 on 04/03 to 8.7 today, and was noted to be mildly tachycardic today and weak. Because of this, he was transfused 1 unit PRBC today without complications. He notes that the pain is improving slowly. He was able to ambulate down the johnson with physical therapy assistance. The patient is to be discharge to TCU today for further rehabiliation. 1. Hip fracture, right post fall s/p ORIF day 2 continue pain management ortho Dr. Will following Continue PT as per ortho recommendations Incentive spirometry Started Lovenox for DVT prophylaxis Continue physical therapy in TCU 2. COPD (chronic obstructive pulmonary disease) patient is a chronic heavy smoker with chronic cough CXR preop showed no active disease Repeat CXr today showed Prominent lung markings and suspicious for focal small infiltrate at the right lower lung. Hyperinflation of the lungs suspicious for COPD. o2 PRN strated mucinex and Duoneb RTC No need for antibiotics since there is no signs of infection 3.Tobacco use disorder Started nicotine patch 4. Alcoholism patient was admitted on 03/29 with ETOH level 129 watch for alcohol withdrawal on Buspar 5. Acute blood loss anemia post op Hgb dropped from 12 .4-- 9.6-->8.7 today s/p PRBC transfusion, 1 unit Repeat H&H in AM Continue monitor for now 6. DVT prophylaxis SCD continue Lovenox Discharge Exam - Head Exam Head Exam: ATRAUMATIC, NORMAL INSPECTION, NORMOCEPHALIC - Eye Exam Eye Exam: EOMI, Normal appearance, PERRL Pupil Exam: NORMAL ACCOMODATION, PERRL - Respiratory Exam Respiratory Exam: Clear to PA & Lateral, NORMAL BREATHING PATTERN, UNREMARKABLE - Cardiovascular Exam Cardiovascular Exam: REGULAR RHYTHM, +S1, +S2 - GI/Abdominal Exam GI & Abdominal Exam: Normal Bowel Sounds - Rectal Exam Rectal Exam: NORMAL INSPECTION - Extremities Exam Extremities exam: normal capillary refill, tenderness (Tenderness to right hip) , pedal pulses present - Back Exam Back exam: NORMAL INSPECTION - Neurological Exam Neurological exam: Alert, CN II-XII Intact, Normal Gait, Oriented x3, Reflexes Normal - Psychiatric Exam Psychiatric exam: Normal Affect, Normal Mood Discharge Plan - Follow Up Plan Condition: GOOD Disposition: TRANSF TO SNF Instructions: COPD (Chronic Obstructive Pulmonary Disease) (DC), Total Hip Replacement (DC) Additional Instructions: d/c to TCU Referrals: Corey Will III, MD [Staff Provider] - Amrik Be MD [Primary Care Provider] -
[2017-04-04 15:45] VITALS: BP 106/69; PULSE 101; RESP 16; TEMP 97.9; O2SAT 96
[2017-04-05 06:47] LABS: HEMATOCRIT 39.8 % (35.0-51.0); MEAN CELL VOLUME 94.7 fl (80.0-94.0); MEAN CORPUSCULAR HGB CONC 32.8 g/dL (33.0-37.0); RED CELL DISTRIBUTION WIDTH 13.8 % (11.5-14.5)
[2017-04-05 06:57] LABS: BLOOD UREA NITROGEN 10 mg/dl (9-20); CALCIUM 8.4 mg/dL (8.4-10.2); CARBON DIOXIDE 24 mmol/L (22-30); CHLORIDE 111 mmol/L (98-107); GFR AFRICAN-AMERICAN > 60; GLUCOSE,RANDOM 114 mg/dL (75-110); POTASSIUM 4.5 MMOL/L (3.6-5.0); SODIUM 143 mmol/l (132-148)
== END 2017-04-04 13:44 | DRG 470 ==
LOC: H.TEL 16:56 → UNDOADMIN 16:56 → H.TEL 18:38 → H.ICU/CCU 04-02 20:56 → H.TEL 04-03 18:27
PROC: 0SR902A Replacement of Right Hip Joint with Metal on Polyethylene Synthetic Substitute, Uncemented, Open Approach (ICD-10-PCS; principal; 2017-04-02 15:45)
PROC: 3E0T3BZ Introduction of Anesthetic Agent into Peripheral Nerves and Plexi, Percutaneous Approach (ICD-10-PCS; 2017-04-02 15:45)
DX: S72.011A Unspecified intracapsular fracture of right femur, initial encounter for closed fracture (principal); G62.9 Polyneuropathy, unspecified; J44.9 Chronic obstructive pulmonary disease, unspecified; E87.1 Hypo-osmolality and hyponatremia; D62 Acute posthemorrhagic anemia; W19.XXXA Unspecified fall, initial encounter; F10.20 Alcohol dependence, uncomplicated; F17.200 Nicotine dependence, unspecified, uncomplicated; M16.11 Unilateral primary osteoarthritis, right hip; Z79.899 Other long term (current) drug therapy; Z87.01 Personal history of pneumonia (recurrent); E86.0 Dehydration

== ENCOUNTER 2017-04-04 15:23 | Inpatient (IN) | payer OTHER ==
[2017-04-04 16:20] VITALS: BMI 22.5
[2017-04-04] MEDS ORDERED: POLYETHYLENE GLYCOL 3350 17 GM/Dose PACKET PO PRN (17:43)
[2017-04-04] MEDS ORDERED: Tuberculin 5 Units/0.1 ml Inj ID ONE (18:58)
[2017-04-04 20:07] VITALS: RESP 20
[2017-04-04] MEDS ORDERED: ALBUTEROL NEB SCH (22:00)
[2017-04-05] MEDS: Sodium Chloride 0.9% 1,000 ML IV SCH ×2 (07:00→20:10)
[2017-04-05] MEDS: Albuterol-Ipratrop 3 mg / 0.5 (3 ml) UD INH SCH ×4 (07:19→19:13)
[2017-04-05 07:49] LABS: BLOOD UREA NITROGEN 10 mg/dl (9-20); CARBON DIOXIDE 25 mmol/L (22-30); CHLORIDE 99 mmol/L (98-107); GFR AFRICAN-AMERICAN > 60; GLUCOSE,RANDOM 96 mg/dL (75-110); POTASSIUM 3.6 MMOL/L (3.6-5.0); SODIUM 130 mmol/l (132-148); URIC ACID 2.5 mg/Dl (3.5-8.5)
[2017-04-05] MEDS ORDERED: Oxycodone/Acetaminophen 5/325 mg Tab PO PRN (07:50)
[2017-04-05] MEDS: Enoxaparin 40 mg Syringe SC SCH (09:02)
[2017-04-05] MEDS: guaiFENesin-DM 600-30 mg ER Tab PO SCH ×2 (09:03→16:43)
[2017-04-05] MEDS: Alum-Mag Hydrox-Simethicone Susp (30 mL) PO PRN (10:12)
--- NOTE | 2017-04-05 12:26 | CP.PCM.HP ---
History of Present Illness - History of Present Illness History of Present Illness: 76 yo male with history of COPD and peripheral neuropathy of the right foot admitted in [facility] on 03/29/2017 because of fracture of the right hip sustained after falling on his kitchen. He was transferred to [facility] on 04/01/2017 and had right THR the next day. Patient received 1 unit of PRBC because of anemia secondary to blood loss. He was transferred to TCU yesterday to continue his PT. Present on Admission - Present on Admission Any Indicators Present on Admission: No History of DVT/PE: No History of Uncontrolled Diabetes: No Urinary Catheter: No Decubitus Ulcer Present: No Review of Systems - Review of Systems All systems: reviewed and no additional remarkable complaints except (aside from those mentioned above, 12 point system review were negative by me) 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) he took before - HEENT Hx HEENT Problems: No - RENAL Hx Chronic Kidney Disease: No - ENDOCRINE/METABOLIC Hx Endocrine Disorders: No - HEMATOLOGICAL/ONCOLOGICAL Hx Blood Transfusions: Yes - INTEGUMENTARY Hx Dermatological Problems: No - MUSCULOSKELETAL/RHEUMATOLOGICAL Hx Musculoskeletal Disorders: Yes Hx Falls: Yes (03-29-17) Hx Fractures: Yes (RIGHT FEMORAL NECK FX 03-29-17) Other/Comment: torn rotator cuff, right, 1994 - GASTROINTESTINAL Hx Gastrointestinal Disorders: No - GENITOURINARY/GYNECOLOGICAL Hx Genitourinary Disorders: No - PSYCHIATRIC Hx Psychophysiologic Disorder: Yes Hx Depression: Yes Hx Substance Use: No - SURGICAL HISTORY Hx Surgeries: Yes Hx Orthopedic Surgery: Yes (rotator cuff repair, 1994, right THR, 04/02/2017) - ANESTHESIA Hx Anesthesia: Yes Hx Anesthesia Reactions: No Hx Malignant Hyperthermia: No Meds Allergies/Adverse Reactions: Allergies Allergy/AdvReac Type Severity Reaction Status Date / Time Sulfa (Sulfonamide Allergy SHORTNESS Verified 03/29/17 22:00 Antibiotics) OF BREATH Physical Exam - Constitutional Appears: No Acute Distress - Head Exam Head Exam: ATRAUMATIC - Eye Exam Eye Exam: absent: Scleral icterus - ENT Exam ENT Exam: Mucous Membranes Moist - Neck Exam Neck exam: Negative for: Meningismus - Respiratory Exam Respiratory Exam: absent: Rhonchi, Wheezes, Respiratory Distress - Cardiovascular Exam Cardiovascular Exam: REGULAR RHYTHM, +S1, +S2 - GI/Abdominal Exam GI & Abdominal Exam: Soft. absent: Tenderness - Rectal Exam Rectal Exam: Deferred - Extremities Exam Extremities exam: Positive for: full ROM (right hip) - Neurological Exam Neurological exam: Alert, Oriented x3 - Psychiatric Exam Psychiatric exam: Normal Affect - Skin Skin Exam: Dry, Intact Results - Vital Signs Recent Vital Signs: Last Vital Signs Temp 98.1 F 04/05/17 08:19 Pulse 92 H 04/05/17 08:19 Resp 20 04/05/17 08:19 BP 115/69 04/05/17 08:19 Pulse Ox 98 04/05/17 08:19 - Labs Result Diagrams: 04/05/17 07:20 Labs: Laboratory Results - last 24 hr 04/05/17 04/05/17 07:20 08:00 Sodium 130 L Potassium 3.6 Chloride 99 Carbon Dioxide 25 Anion Gap 10 BUN 10 Creatinine 0.7 L Est GFR ( Amer) > 60 Est GFR (Non-Af Amer) > 60 Random Glucose 96 Serum Osmolality 268 L Uric Acid 2.5 L Calcium 8.0 L Assessment & Plan - Assessment and Plan (Free Text) Assessment: 76 yo male with history of COPD and peripheral neuropathy of the right foot admitted in [facility] on 03/29/2017 because of fracture of the right hip sustained after falling on his kitchen. He was transferred to [facility] on 04/01/2017 and had right THR the next day. Patient received 1 unit of PRBC because of anemia secondary to blood loss. He was transferred to TCU yesterday to continue PT. 1. Hip fracture, right post fall s/p ORIF day 3 continue pain management Continue PT as per ortho recommendations 2. COPD (chronic obstructive pulmonary disease) Repeat CXray today showed prominent lung markings, suspicious for focal small infiltrate at the right lower lung. Hyperinflation of the lungs suspicious for COPD. Continue close monitoring O2 PRN on mucinex and Duoneb RTC No need for antibiotics since there is no signs of overt infection 3. Alcoholism watch for alcohol withdrawal on Buspar 4. Acute blood loss anemia post op Hgb: 13 Continue monitoring 5. DVT prophylaxis SCD started on Lovenox
[2017-04-05 13:22] LABS: BASO % 0.1 % (0.0-2.0); EOS % 0.1 % (0.0-4.0); HEMATOCRIT 30.2 % (35.0-51.0); LYMPH # 0.6 K/uL (1.0-4.3); LYMPH % 6.5 % (20.0-40.0); MEAN CORPUSCULAR HEMOGLOBIN 32.7 pg (27.0-31.0); MEAN CORPUSCULAR HGB CONC 34.1 g/dL (33.0-37.0); MEAN PLATELET VOLUME 7.4 fl (7.2-11.7); MONO % 10.3 % (0.0-10.0); NEUT # 7.7 K/uL (1.8-7.0); PLATELET COUNT 195 K/uL (130-400); RED CELL DISTRIBUTION WIDTH 14.4 % (11.5-14.5); WHITE BLOOD COUNT 9.3 K/uL (4.8-10.8)
[2017-04-05] MEDS: Oxycodone/Acetaminophen 5/325 mg Tab PO PRN ×2 (13:47→20:50)
[2017-04-05 15:56] LABS: EOSINOPHIL 2 % (0-7); NEUTROPHIL 83 % (42-75); TOTAL CELLS COUNTED 100
[2017-04-06 06:45] LABS: BASO % 0.6 % (0.0-2.0); EOS # 0.1 K/uL (0.0-0.7); EOS % 1.2 % (0.0-4.0); HEMATOCRIT 27.6 % (35.0-51.0); LYMPH # 0.8 K/uL (1.0-4.3); MEAN CELL VOLUME 96.9 fl (80.0-94.0); MEAN CORPUSCULAR HEMOGLOBIN 32.6 pg (27.0-31.0); MEAN CORPUSCULAR HGB CONC 33.6 g/dL (33.0-37.0); MEAN PLATELET VOLUME 7.5 fl (7.2-11.7); MONO # 0.7 K/uL (0.0-0.8); MONO % 10.5 % (0.0-10.0); NEUT # 4.8 K/uL (1.8-7.0); NEUT % 74.7 % (50.0-75.0); NRBC % 0.1 % (0.0-0.0); RED CELL DISTRIBUTION WIDTH 14.4 % (11.5-14.5); WHITE BLOOD COUNT 6.5 K/uL (4.8-10.8)
[2017-04-06 07:01] LABS: BLOOD UREA NITROGEN 10 mg/dl (9-20); CALCIUM 8.2 mg/dL (8.4-10.2); CARBON DIOXIDE 22 mmol/L (22-30); CHLORIDE 99 mmol/L (98-107); GFR AFRICAN-AMERICAN > 60; GLUCOSE,RANDOM 93 mg/dL (75-110); POTASSIUM 3.5 MMOL/L (3.6-5.0); SODIUM 130 mmol/l (132-148)
[2017-04-06] MEDS: Albuterol-Ipratrop 3 mg / 0.5 (3 ml) UD INH SCH ×4 (07:24→19:07)
[2017-04-06] MEDS: Oxycodone/Acetaminophen 5/325 mg Tab PO PRN ×2 (07:57→20:40)
[2017-04-06] MEDS: guaiFENesin-DM 600-30 mg ER Tab PO SCH ×2 (08:03→18:23)
[2017-04-06] MEDS: Enoxaparin 40 mg Syringe SC SCH (08:05)
[2017-04-06] MEDS ORDERED: Potassium Chloride 20 mEq ER Tab PO ONE (10:30)
[2017-04-06] MEDS ORDERED: Iohexol 240 (50 ml) PO ONE (11:35)
--- NOTE | 2017-04-06 12:19 | CP.PCM.CON ---
History of Present Illness - History of Present Illness History of Present Illness: Dr Edgar PMR consultation on Allan Flores, born 1940, who has been admitted to [facility] following a right hip fracture. Underwent THR. Post op with constipation, hypoNA+ Renal consultation has been called, swelling of genitals. He had some dizziness as well and cardiology has been called Pain is controlled Review of Systems - Constitutional Constitutional: absent: Chills - EENT Eyes: absent: Blurred Vision Nose/Mouth/Throat: absent: Nasal Congestion - Cardiovascular Cardiovascular: absent: Chest Pain - Respiratory Respiratory: absent: Dyspnea, Hemoptysis - Gastrointestinal Gastrointestinal: Bloating, Constipation, Cramping. absent: Belching - Musculoskeletal Musculoskeletal: absent: Back Pain - Integumentary Integumentary: absent: Alopecia - Neurological Neurological: absent: Abnormal Hearing, Abnormal Movements 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) he took before - HEENT Hx HEENT Problems: No - RENAL Hx Chronic Kidney Disease: No - ENDOCRINE/METABOLIC Hx Endocrine Disorders: No - HEMATOLOGICAL/ONCOLOGICAL Hx Blood Transfusions: Yes - INTEGUMENTARY Hx Dermatological Problems: No - MUSCULOSKELETAL/RHEUMATOLOGICAL Hx Musculoskeletal Disorders: Yes Hx Falls: Yes (03-29-17) Hx Fractures: Yes (RIGHT FEMORAL NECK FX 03-29-17) Other/Comment: torn rotator cuff, right, 1994 - GASTROINTESTINAL Hx Gastrointestinal Disorders: No - GENITOURINARY/GYNECOLOGICAL Hx Genitourinary Disorders: No - PSYCHIATRIC Hx Psychophysiologic Disorder: Yes Hx Depression: Yes Hx Substance Use: No - SURGICAL HISTORY Hx Surgeries: Yes Hx Orthopedic Surgery: Yes (rotator cuff repair, 1994, right THR, 04/02/2017) - ANESTHESIA Hx Anesthesia: Yes Hx Anesthesia Reactions: No Hx Malignant Hyperthermia: No Meds Allergies/Adverse Reactions: Allergies Allergy/AdvReac Type Severity Reaction Status Date / Time Sulfa (Sulfonamide Allergy SHORTNESS Verified 03/29/17 22:00 Antibiotics) OF BREATH - Medications Medications: Current Medications Al Hydrox/Mg Hydrox/Simethicone (Maalox Plus 30 Ml) 30 ml PO Q6 PRN PRN Reason: Indigestion / Heartburn Last Admin: 04/05/17 10:12 Dose: 30 ml Albuterol (Ventolin Hfa 90 Mcg/Actuation (8 G)) 2 puff IH RQ6 PRN PRN Reason: Wheezing Albuterol/Ipratropium (Duoneb 3 Mg/0.5 Mg (3 Ml) Ud) 3 ml INH RQID [facility] Last Admin: 04/06/17 11:13 Dose: 3 ml Buspirone HCl (Buspar) 5 mg PO TID [facility] Last Admin: 04/06/17 08:03 Dose: 5 mg Docusate Sodium (Colace) 100 mg PO BID [facility] Last Admin: 04/06/17 08:03 Dose: 100 mg Enoxaparin Sodium (Lovenox) 40 mg SC DAILY [facility] PRN Reason: Protocol Last Admin: 04/06/17 08:05 Dose: 40 mg Folic Acid (Folic Acid) 1 mg PO DAILY [facility] Last Admin: 04/05/17 09:03 Dose: 1 mg Guaifenesin/Dextromethorphan (Mucinex-Dm 600-30 Mg) 1 tab PO BID [facility] Last Admin: 04/06/17 08:03 Dose: 1 tab Lorazepam (Ativan) 0.5 mg PO TID PRN PRN Reason: Anxiety Nicotine (Nicoderm Cq) 1 patch TD DAILY [facility] Last Admin: 04/06/17 08:04 Dose: 1 patch Oxycodone/Acetaminophen (Percocet 5/325 Mg Tab) 1 tab PO Q4 PRN PRN Reason: Pain, moderate (4-7) Stop: 04/08/17 07:51 Oxycodone/Acetaminophen (Percocet 5/325 Mg Tab) 2 tab PO Q6 PRN PRN Reason: Pain, severe (8-10) Stop: 04/08/17 07:51 Last Admin: 04/06/17 07:57 Dose: 2 tab Polyethylene Glycol (Miralax) 17 gm PO ONCE PRN PRN Reason: Constipation Last Admin: 04/04/17 21:37 Dose: 17 gm Thiamine HCl (Vitamin B1 Tab) 100 mg PO DAILY [facility] Last Admin: 04/06/17 08:04 Dose: 100 mg Physical Exam - Constitutional Appears: Well, Non-toxic, No Acute Distress - Head Exam Head Exam: ATRAUMATIC, NORMAL INSPECTION, NORMOCEPHALIC - Eye Exam Eye Exam: EOMI - ENT Exam ENT Exam: Mucous Membranes Moist - Respiratory Exam Respiratory Exam: NORMAL BREATHING PATTERN - Cardiovascular Exam Cardiovascular Exam: REGULAR RHYTHM - GI/Abdominal Exam GI & Abdominal Exam: Distended (+ tympany) - Exam Exam: Scrotal Swelling - Neurological Exam Neurological exam: Alert, CN II-XII Intact, Oriented x3 - Psychiatric Exam Psychiatric exam: Normal Affect, Normal Mood Results - Vital Signs Recent Vital Signs: Last Vital Signs Temp 97.9 F 04/06/17 08:12 Pulse 97 H 04/06/17 08:12 Resp 20 04/06/17 08:12 BP 130/71 04/06/17 08:12 Pulse Ox 92 L 04/06/17 08:12 - Labs Result Diagrams: 04/06/17 05:45 04/06/17 10:00 Labs: Laboratory Results - last 24 hr 04/05/17 04/05/17 04/05/17 13:13 22:10 22:20 WBC 9.3 RBC 3.15 L Hgb 10.3 L D Hct 30.2 L MCV 96.0 H MCH 32.7 H MCHC 34.1 RDW 14.4 Plt Count 195 MPV 7.4 Neut % (Auto) 83.0 H Lymph % (Auto) 6.5 L Mayes % (Auto) 10.3 H Eos % (Auto) 0.1 Baso % (Auto) 0.1 Neut # 7.7 H Lymph # 0.6 L Mayes # 1.0 H Eos # 0.0 Baso # 0.0 Neutrophils % (Manual) 83 H Band Neutrophils % 1 Lymphocytes % (Manual) 6 L Monocytes % (Manual) 8 Eosinophils % (Manual) 2 Platelet Estimate Normal RBC Morphology Normal Sodium Potassium Chloride Carbon Dioxide Anion Gap BUN Creatinine Est GFR ( Amer) Est GFR (Non-Af Amer) Random Glucose Calcium NT-Pro-B Natriuret Pep Urine Osmolality 565 Ur Random Sodium 53 Ur Random Potassium 28.5 04/06/17 04/06/17 05:45 10:00 WBC 6.5 RBC 2.85 L Hgb 9.3 L Hct 27.6 L MCV 96.9 H MCH 32.6 H MCHC 33.6 RDW 14.4 Plt Count 230 MPV 7.5 Neut % (Auto) 74.7 Lymph % (Auto) 13.0 L Mayes % (Auto) 10.5 H Eos % (Auto) 1.2 Baso % (Auto) 0.6 Neut # 4.8 Lymph # 0.8 L Mayes # 0.7 Eos # 0.1 Baso # 0.0 Neutrophils % (Manual) Band Neutrophils % Lymphocytes % (Manual) Monocytes % (Manual) Eosinophils % (Manual) Platelet Estimate RBC Morphology Sodium 130 L Potassium 3.5 L Chloride 99 Carbon Dioxide 22 Anion Gap 13 BUN 10 Creatinine 0.6 L Est GFR ( Amer) > 60 Est GFR (Non-Af Amer) > 60 Random Glucose 93 Calcium 8.2 L NT-Pro-B Natriuret Pep 469 Urine Osmolality Ur Random Sodium Ur Random Potassium Assessment & Plan - Assessment and Plan (Free Text) Assessment: 76 year old male has good UE ROM right hip dressing with some strike through Has cardiology and Renal consult continue current care
[2017-04-06] MEDS: Alum-Mag Hydrox-Simethicone Susp (30 mL) PO PRN (16:18)
[2017-04-07] MEDS: Alum-Mag Hydrox-Simethicone Susp (30 mL) PO PRN ×2 (02:54→13:27)
--- NOTE | 2017-04-07 03:20 | CON ---
RENAL CONSULTATION DATE: LOCATION: TCU room 705, bed 1. REQUESTED BY: Jason Matta MD REASON FOR RENAL CONSULTATION: Hyponatremia, rule out SIADH. HISTORY OF PRESENT ILLNESS: Mr. 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 Subsequently, the patient was transferred to transitional care unit for physical therapy. The patient was found to have hyponatremia after postop and now renal consult requested for further evaluation. The patient is not in acute distress, complaints of mild to moderate pain in the right hip and feels stiffness in the right hip. The patient denies any chest pain, or palpitation. Denies any fever or cough. Denies any nausea, vomiting or diarrhea. Denies any abdominal pain. The patient does complaints of constipation and slight distention of the abdomen and also slight scrotal swelling. No tenderness. No fever. 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 PAST SURGICAL HISTORY: Status post appendectomy when he was 10 years old and rotator cuff surgery in 1994, status post fall and fracture of the right hip and status post right total hip replacement on 04/02/2017. ALLERGIES: ALLERGY TO SULFA. FAMILY HISTORY: Not significant. 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 SOCIAL HISTORY: The patient is a smoker for a long time and also drinks beer 6 packs per day and no drug abuse. CURRENT MEDICATIONS: Include as follows: Ativan 1 mg p.o. t.i.d. and BuSpar 5 mg p.o. t.i.d., Colace 100 mg p.o. b.i.d., DuoNeb inhaler 3 mL q.i.d., folic acid 1 mg daily, Lovenox 40 mg subcutaneous daily, Maalox 30 mL p.o. q. 6 hours p.r.n., MiraLax 17 g p.o. once p.r.n., Mucinex 1 tablet p.o. b.i.d., nicotine patch 1 daily and Percocet 1 tablet p.o. q. 4 hours p.r.n., thiamine 100 mg p.o. daily and sodium chloride tablet 1 p.o. t.i.d. REVIEW OF SYSTEMS: Significant for stiffness of the right leg and scrotal swelling. PHYSICAL EXAMINATION VITAL SIGNS: As follows: Blood pressure 122/67, pulse 93, respiration 20, temperature 97, saturation 92%, height 6 feet and weight is 166 pounds and BMI 22.5. GENERAL: Mr. Flores is a 76 years old elderly male, moderately built, moderately nourished, not in distress. HEENT: Pupils are normal and reactive to light and accommodation. Conjunctivae pink. Sclerae anicteric. Tongue is moist. Trachea is midline. LUNGS: Symmetric on both sides, bilateral breath sounds present. Clear on auscultation. CARDIOVASCULAR: [place] at the fifth intercostal space, half inch middle, midclavicular line. S1 and S2 audible. No murmur or gallop. ABDOMEN: Normal in appearance, slightly distended and tympanitic. No guarding. No rigidity. No hepatosplenomegaly. HEADWAITER/HEADWAITRESS: The patient is alert, awake, and oriented x3. Nonfocal neurologic examination. Cranial nerves II through XII are grossly intact. Sensory motor system is within normal limits. EXTREMITIES: No cyanosis. No clubbing. No edema. The patient has elastic stocking to the left leg and the patient has now dressing to the right leg. LABORATORY DATA: Includes as follows: As of 04/05/2017; sodium is 130, potassium 3.6, chloride 99, CO2 of 25, BUN 10, creatinine 0.7, glucose 96, uric acid is 2.5 and calcium 8.0. Serum osmolality 268 as of 04/05/2017. As of 04/06/2017; sodium 130, potassium 3.5, chloride 99, CO2 of 22, BUN 10, creatinine 0.6, glucose 93, calcium 8.2 and proBNP 469. Other laboratory data as of 04/05/2017, urine osmolality is 565. Urine sodium is 53 and urine potassium is 28.5. Review of labs from last week admission as of 03/29/2017; sodium is 126, potassium 4.1, chloride 93, CO2 22, BUN 11, creatinine 0.7. As of 03/30/2017; sodium is 124. As of 03/31/2017; sodium 128. As of 04/01/2017; sodium is 132. As of 04/02/2017; sodium is 131. As of 04/03/2017; sodium 130. As of 04/04/2017; sodium is 127. Chest x-ray as of 04/03/2017 a prominent lung emiliana since suspicious for focal small infiltrate at the right lower lung, hyperinflation of the lung suspicious for COPD. ASSESSMENT: In summary; Mr. Flores is a 76 years old elderly male with a history of smoke and EtOH abuse, chronic obstructive pulmonary disease status post fall on 03/28/2017. On 03/29/2017 with a fracture of the right hip and status post surgery on 04/02/2017 with hyponatremia on admission and low serum osmolality and urine osmolality and urine sodium more than 50 and serum uric acid is low. 1. Hyponatremia, most likely secondary to syndrome of inappropriate secretion of antidiuretic hormone, secondary to pain, cannot rule out underlying malignancy, rule out hypothyroidism, rule out adrenal insufficiency less likely. 2. Chronic obstructive pulmonary disease. 3. Status post fall with a fracture of the right hip and status post right total hip replacement. PLAN: We will check TSH level, serum cortisol level and also will check CA 19-9 and also alpha-fetoprotein and BMP in a.m. and also will add sodium chloride tablet one p.o. t.i.d. and also continue stool softener Colace and also MiraLax as needed. We will follow with you. Thank you for allowing me to participate in your patient's care. Lopez Nicolas MD
[2017-04-07] MEDS: Oxycodone/Acetaminophen 5/325 mg Tab PO PRN ×3 (03:41→21:57)
[2017-04-07] MEDS: Albuterol HFA 90 mcg/actuation (8 g) IH PRN ×2 (03:46→10:43)
[2017-04-07 07:19] LABS: THYROID STIMULATING HORMONE 1.5 mIU/ML (0.46-4.68)
[2017-04-07] MEDS: Albuterol-Ipratrop 3 mg / 0.5 (3 ml) UD INH SCH ×4 (07:23→19:00)
[2017-04-07] MEDS: guaiFENesin-DM 600-30 mg ER Tab PO SCH ×2 (08:55→17:46)
[2017-04-07] MEDS: Enoxaparin 40 mg Syringe SC SCH (08:57)
[2017-04-07 10:15] LABS: BLOOD UREA NITROGEN 9 mg/dl (9-20); CALCIUM 8.4 mg/dL (8.4-10.2); CARBON DIOXIDE 25 mmol/L (22-30); CHLORIDE 98 mmol/L (98-107); GFR AFRICAN-AMERICAN > 60; GLUCOSE,RANDOM 96 mg/dL (75-110); POTASSIUM 4.2 MMOL/L (3.6-5.0); SODIUM 129 mmol/l (132-148)
--- NOTE | 2017-04-07 11:53 | CP.PCM.PN ---
Subjective - Date & Time of Evaluation Date of Evaluation: 04/07/17 Time of Evaluation: 11:52 - Subjective Subjective: pt is seen and examined, follow up consult is dictated #[id number] c/w nacl tab 1 tid bmp in am Objective - Vital Signs/Intake and Output Vital Signs (last 24 hours): Temp Pulse Resp BP Pulse Ox 97.9 F 65 20 107/59 L 96 04/07/17 09:18 04/07/17 09:18 04/07/17 09:18 04/07/17 09:18 04/07/17 09:18 - Medications Medications: Current Medications Al Hydrox/Mg Hydrox/Simethicone (Maalox Plus 30 Ml) 30 ml PO Q6 PRN PRN Reason: Indigestion / Heartburn Last Admin: 04/07/17 02:54 Dose: 30 ml Albuterol (Ventolin Hfa 90 Mcg/Actuation (8 G)) 2 puff IH RQ6 PRN PRN Reason: Wheezing Last Admin: 04/07/17 10:43 Dose: 2 puff Albuterol/Ipratropium (Duoneb 3 Mg/0.5 Mg (3 Ml) Ud) 3 ml INH RQID [facility] Last Admin: 04/07/17 11:17 Dose: 3 ml Buspirone HCl (Buspar) 5 mg PO TID [facility] Last Admin: 04/07/17 08:57 Dose: 5 mg Docusate Sodium (Colace) 100 mg PO BID [facility] Last Admin: 04/07/17 08:57 Dose: 100 mg Enoxaparin Sodium (Lovenox) 40 mg SC DAILY [facility] PRN Reason: Protocol Last Admin: 04/07/17 08:57 Dose: 40 mg Folic Acid (Folic Acid) 1 mg PO DAILY [facility] Last Admin: 04/07/17 08:58 Dose: 1 mg Guaifenesin/Dextromethorphan (Mucinex-Dm 600-30 Mg) 1 tab PO BID [facility] Last Admin: 04/07/17 08:55 Dose: 1 tab Lorazepam (Ativan) 0.5 mg PO TID PRN PRN Reason: Anxiety Nicotine (Nicoderm Cq) 1 patch TD DAILY [facility] Last Admin: 04/07/17 08:56 Dose: 1 patch Oxycodone/Acetaminophen (Percocet 5/325 Mg Tab) 1 tab PO Q4 PRN PRN Reason: Pain, moderate (4-7) Stop: 04/08/17 07:51 Oxycodone/Acetaminophen (Percocet 5/325 Mg Tab) 2 tab PO Q6 PRN PRN Reason: Pain, severe (8-10) Stop: 04/08/17 07:51 Last Admin: 04/07/17 03:41 Dose: 2 tab Polyethylene Glycol (Miralax) 17 gm PO ONCE PRN PRN Reason: Constipation Last Admin: 04/04/17 21:37 Dose: 17 gm Sodium Chloride (Sodium Chloride Tab) 1 gm PO TID [facility] Stop: 04/09/17 09:01 Last Admin: 04/07/17 08:55 Dose: 1 gm Thiamine HCl (Vitamin B1 Tab) 100 mg PO DAILY [facility] Last Admin: 04/07/17 08:58 Dose: 100 mg - Labs Labs: 04/06/17 05:45 04/07/17 05:30
--- NOTE | 2017-04-07 11:54 | CP.PCM.PN ---
Subjective - Date & Time of Evaluation Date of Evaluation: 04/06/17 Time of Evaluation: 20:10 - Subjective Subjective: pt is seen and examined, full consult is dictated # late entry, seen on 04/06/2017 at 20:10 Objective - Vital Signs/Intake and Output Vital Signs (last 24 hours): Temp Pulse Resp BP Pulse Ox 97.9 F 65 20 107/59 L 96 04/07/17 09:18 04/07/17 09:18 04/07/17 09:18 04/07/17 09:18 04/07/17 09:18 - Medications Medications: Current Medications Al Hydrox/Mg Hydrox/Simethicone (Maalox Plus 30 Ml) 30 ml PO Q6 PRN PRN Reason: Indigestion / Heartburn Last Admin: 04/07/17 02:54 Dose: 30 ml Albuterol (Ventolin Hfa 90 Mcg/Actuation (8 G)) 2 puff IH RQ6 PRN PRN Reason: Wheezing Last Admin: 04/07/17 10:43 Dose: 2 puff Albuterol/Ipratropium (Duoneb 3 Mg/0.5 Mg (3 Ml) Ud) 3 ml INH RQID [facility] Last Admin: 04/07/17 11:17 Dose: 3 ml Buspirone HCl (Buspar) 5 mg PO TID [facility] Last Admin: 04/07/17 08:57 Dose: 5 mg Docusate Sodium (Colace) 100 mg PO BID [facility] Last Admin: 04/07/17 08:57 Dose: 100 mg Enoxaparin Sodium (Lovenox) 40 mg SC DAILY [facility] PRN Reason: Protocol Last Admin: 04/07/17 08:57 Dose: 40 mg Folic Acid (Folic Acid) 1 mg PO DAILY [facility] Last Admin: 04/07/17 08:58 Dose: 1 mg Guaifenesin/Dextromethorphan (Mucinex-Dm 600-30 Mg) 1 tab PO BID [facility] Last Admin: 04/07/17 08:55 Dose: 1 tab Lorazepam (Ativan) 0.5 mg PO TID PRN PRN Reason: Anxiety Nicotine (Nicoderm Cq) 1 patch TD DAILY [facility] Last Admin: 04/07/17 08:56 Dose: 1 patch Oxycodone/Acetaminophen (Percocet 5/325 Mg Tab) 1 tab PO Q4 PRN PRN Reason: Pain, moderate (4-7) Stop: 04/08/17 07:51 Oxycodone/Acetaminophen (Percocet 5/325 Mg Tab) 2 tab PO Q6 PRN PRN Reason: Pain, severe (8-10) Stop: 04/08/17 07:51 Last Admin: 04/07/17 03:41 Dose: 2 tab Polyethylene Glycol (Miralax) 17 gm PO ONCE PRN PRN Reason: Constipation Last Admin: 04/04/17 21:37 Dose: 17 gm Sodium Chloride (Sodium Chloride Tab) 1 gm PO TID [facility] Stop: 04/09/17 09:01 Last Admin: 04/07/17 08:55 Dose: 1 gm Thiamine HCl (Vitamin B1 Tab) 100 mg PO DAILY [facility] Last Admin: 04/07/17 08:58 Dose: 100 mg - Labs Labs: 04/06/17 05:45 04/07/17 05:30
[2017-04-07 11:57] LABS: CORTISOL AM 12.6 ug/dL (4.46-22.7)
[2017-04-07 12:01] LABS: CA 19-9 2.4 U/mL (0-37)
--- NOTE | 2017-04-07 14:13 | CP.PCM.CON ---
History of Present Illness - History of Present Illness History of Present Illness: THE PATIENT IS A 76 YEAR OLD MALE WHO UNDERWENT A RIGHT THR LAST WEEK BY DR DHALIWAL FOLLOWING A FALL AND FRACTURE. HE ALSO HAS COPD, HYPONATREMIA AND IS A DRINKER. THE NURSES NOTED AN IRREGULAR HEART RHYTHM YESTERDAY AND AN EKG WAS ORDERED. CARDIOLOGY WAS CALLED TO SEE HIM DUE TO PVCS ON THE EKG. HE DOESN'T HAVE ANY CARDIAC PROBLEMS IN THE PAST AND DENIES CHEST PAIN. 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) he took before - HEENT Hx HEENT Problems: No - RENAL Hx Chronic Kidney Disease: No - ENDOCRINE/METABOLIC Hx Endocrine Disorders: No - HEMATOLOGICAL/ONCOLOGICAL Hx Blood Transfusions: Yes - INTEGUMENTARY Hx Dermatological Problems: No - MUSCULOSKELETAL/RHEUMATOLOGICAL Hx Musculoskeletal Disorders: Yes Hx Falls: Yes (03-29-17) Hx Fractures: Yes (RIGHT FEMORAL NECK FX 03-29-17) Other/Comment: torn rotator cuff, right, 1994 - GASTROINTESTINAL Hx Gastrointestinal Disorders: No - GENITOURINARY/GYNECOLOGICAL Hx Genitourinary Disorders: No - PSYCHIATRIC Hx Psychophysiologic Disorder: Yes Hx Depression: Yes Hx Substance Use: No - SURGICAL HISTORY Hx Surgeries: Yes Hx Orthopedic Surgery: Yes (rotator cuff repair, 1994, right THR, 04/02/2017) - ANESTHESIA Hx Anesthesia: Yes Hx Anesthesia Reactions: No Hx Malignant Hyperthermia: No Meds Allergies/Adverse Reactions: Allergies Allergy/AdvReac Type Severity Reaction Status Date / Time Sulfa (Sulfonamide Allergy SHORTNESS Verified 03/29/17 22:00 Antibiotics) OF BREATH - Medications Medications: Current Medications Al Hydrox/Mg Hydrox/Simethicone (Maalox Plus 30 Ml) 30 ml PO Q6 PRN PRN Reason: Indigestion / Heartburn Last Admin: 04/07/17 13:27 Dose: 30 ml Albuterol (Ventolin Hfa 90 Mcg/Actuation (8 G)) 2 puff IH RQ6 PRN PRN Reason: Wheezing Last Admin: 04/07/17 10:43 Dose: 2 puff Albuterol/Ipratropium (Duoneb 3 Mg/0.5 Mg (3 Ml) Ud) 3 ml INH RQID [facility] Last Admin: 04/07/17 11:17 Dose: 3 ml Buspirone HCl (Buspar) 5 mg PO TID [facility] Last Admin: 04/07/17 13:08 Dose: 5 mg Docusate Sodium (Colace) 100 mg PO BID [facility] Last Admin: 04/07/17 09:00 Dose: Not Given Enoxaparin Sodium (Lovenox) 40 mg SC DAILY [facility] PRN Reason: Protocol Last Admin: 04/07/17 08:57 Dose: 40 mg Folic Acid (Folic Acid) 1 mg PO DAILY [facility] Last Admin: 04/07/17 08:58 Dose: 1 mg Guaifenesin/Dextromethorphan (Mucinex-Dm 600-30 Mg) 1 tab PO BID [facility] Last Admin: 04/07/17 08:55 Dose: 1 tab Lorazepam (Ativan) 0.5 mg PO TID PRN PRN Reason: Anxiety Nicotine (Nicoderm Cq) 1 patch TD DAILY [facility] Last Admin: 04/07/17 08:56 Dose: 1 patch Oxycodone/Acetaminophen (Percocet 5/325 Mg Tab) 1 tab PO Q4 PRN PRN Reason: Pain, moderate (4-7) Stop: 04/08/17 07:51 Oxycodone/Acetaminophen (Percocet 5/325 Mg Tab) 2 tab PO Q6 PRN PRN Reason: Pain, severe (8-10) Stop: 04/08/17 07:51 Last Admin: 04/07/17 03:41 Dose: 2 tab Polyethylene Glycol (Miralax) 17 gm PO ONCE PRN PRN Reason: Constipation Last Admin: 04/04/17 21:37 Dose: 17 gm Sodium Chloride (Sodium Chloride Tab) 1 gm PO TID [facility] Stop: 04/09/17 09:01 Last Admin: 04/07/17 13:08 Dose: 1 gm Thiamine HCl (Vitamin B1 Tab) 100 mg PO DAILY [facility] Last Admin: 04/07/17 08:58 Dose: 100 mg Physical Exam - Respiratory Exam Respiratory Exam: Clear to Auscultation Bilateral - Cardiovascular Exam Cardiovascular Exam: REGULAR RHYTHM, +S1, +S2 - Additional Findings Additional findings: EKG YESTERDAY SHOWED SINUS RHYTHM WITH SINGLE PVCS IN A BIGEMINAL RHYTHM K+ 4.2 NA 129 Results - Vital Signs Recent Vital Signs: Last Vital Signs Temp 97.9 F 04/07/17 09:18 Pulse 65 04/07/17 09:18 Resp 20 04/07/17 09:18 BP 107/59 L 04/07/17 09:18 Pulse Ox 96 04/07/17 09:18 - Labs Result Diagrams: 04/06/17 05:45 04/07/17 05:30 Labs: Laboratory Results - last 24 hr 04/07/17 04/07/17 04/07/17 05:30 05:30 05:30 Sodium 129 L Potassium 4.2 Chloride 98 Carbon Dioxide 25 Anion Gap 10 BUN 9 Creatinine 0.7 L Est GFR ( Amer) > 60 Est GFR (Non-Af Amer) > 60 Random Glucose 96 Calcium 8.4 Alpha Fetoprotein 2.9 Carcinoembryonic Ag 1.0 CA 19-9 Antigen 2.4 TSH 3rd Generation 1.50 Cortisol AM Sample 12.6 Assessment & Plan - Assessment and Plan (Free Text) Assessment: VENTRICULAR BIGEMINY(BENIGN) S/P RIGHT HIP REPLACEMENT HYPONATREMIA COPD Plan: CONTINUE BRONCHODILATORS AND LOVENOX NO TREATMENT NEEDED FOR SINGLE PVCS
--- NOTE | 2017-04-07 15:34 | PN ---
DATE: 04/07/2017 LOCATION: [facility], Room 705, bed 1. REASON FOR RENAL CONSULTATION: Hypernatremia for further evaluation. SUBJECTIVE: Mr. Flores is a 76-year-old male with a history of smoking and EtOH abuse and also COPD status post fall on 03/29/2017 and fracture of the right hip status post right hip replacement on 04/02/2017 and found to have hypernatremia since admission. The patient is not in acute distress. The patient was recently transferred to subacute rehab transitional care unit for physical therapy. The patient is not in acute distress. Denies any headache, dizziness. Denies any chest pain or palpitation. Denies any fever or cough. No abdominal. No nausea, vomiting, diarrhea. Complains of stiffness in the right leg and also scrotal edema. PHYSICAL EXAMINATION GENERAL: Mr. Flores is a 76 years old elderly male, moderately built, moderately nourished, not in distress. VITAL SIGNS: Blood pressure this morning 107/59, pulse 65, respiration 20, temperature 97.9, and saturations 96%. Height is 6 feet and weight is 166 pounds. HEENT: Pupils are normal and reactive to light and accommodation. Conjunctivae pink. Sclerae anicteric. Tongue is moist. Trachea is midline. LUNGS: Symmetric on both sides, bilateral breath sounds present. Clear on auscultation. CARDIOVASCULAR: [place] at the fifth intercostal space, midclavicular line. S1 and S2 audible. No murmur or gallop. ABDOMEN: Normal in appearance, soft and tympanitic. No guarding noted. No hepatosplenomegaly. TUBE LANCER: The patient is alert, awake, and oriented x3. Nonfocal neurologic examination. Cranial nerves II through XII are grossly intact. Sensory motor system is within normal limits. EXTREMITIES: No cyanosis. No clubbing. No edema. MEDICATIONS: Ativan 0.5 mg p.o. t.i.d. and BuSpar 5 mg p.o. t.i.d., Colace 100 mg p.o. b.i.d., DuoNeb inhaler, folic acid, Lovenox 40 mg subcutaneous daily, Maalox, MiraLax p.r.n., Mucinex 600 mg p.o. b.i.d., nicotine patch daily and Percocet 1 tablet q. 4 hours p.r.n. for pain, sodium chloride tablet 1 g p.o. t.i.d., albuterol inhaler and thiamine 100 mg p.o. daily. LABORATORY DATA: Include as of 04/07/2017, sodium 129, potassium 4, chloride 98, CO2 25, BUN 9, creatinine 0.7, glucose 96, calcium 8.4, and alpha fetoprotein is 2.9. CA is 1.0, CA-99 is 2.4. TSH 1.5. Serum cortisol is 12.6. On 04/05/2017, urine osmolality is 565. Urine sodium is 53 and serum osmolality 268 and serum uric acid 2.5. ASSESSMENT: 1. Hyponatremia, most likely secondary to syndrome of inappropriate antidiuretic hormone secretion, secondary to pain from the recent hip surgery and fracture. 2. Chronic obstructive pulmonary disease. PLAN: Continue sodium chloride tablet, 1 tablet p.o. t.i.d. and also we will add Nepro 1 g p.o. b.i.d. and repeat BMP in the a.m. and restrict fluids to 1 L per day. Thank you for allowing me to participate in your patient's care. Lopez Nicolas MD
[2017-04-08] MEDS: Oxycodone/Acetaminophen 5/325 mg Tab PO PRN (05:41)
[2017-04-08] MEDS: Albuterol HFA 90 mcg/actuation (8 g) IH PRN (05:41)
[2017-04-08] MEDS: Albuterol-Ipratrop 3 mg / 0.5 (3 ml) UD INH SCH ×4 (07:27→19:10)
[2017-04-08] MEDS: guaiFENesin-DM 600-30 mg ER Tab PO SCH ×2 (08:50→16:08)
[2017-04-08] MEDS: Enoxaparin 40 mg Syringe SC SCH (08:51)
[2017-04-08 09:14] LABS: BLOOD UREA NITROGEN 9 mg/dl (9-20); CALCIUM 8.5 mg/dL (8.4-10.2); CARBON DIOXIDE 26 mmol/L (22-30); CHLORIDE 99 mmol/L (98-107); GFR AFRICAN-AMERICAN > 60; GLUCOSE,RANDOM 130 mg/dL (75-110); SODIUM 132 mmol/l (132-148)
[2017-04-08 09:22] LABS: POTASSIUM 3.5 MMOL/L (3.6-5.0)
--- NOTE | 2017-04-08 11:22 | CARD ---
APPROVED REPORT EKG Measurement Heart [id number] <Conclusion> Sinus tachycardia with frequent premature ventricular complexes in a pattern of bigeminy Nonspecific ST abnormality Abnormal ECG
--- NOTE | 2017-04-08 13:32 | CP.PCM.PN ---
Subjective - Date & Time of Evaluation Date of Evaluation: 04/08/17 Time of Evaluation: 09:00 - Subjective Subjective: NO CHEST PAIN OR SOB Objective - Vital Signs/Intake and Output Vital Signs (last 24 hours): Temp Pulse Resp BP Pulse Ox 97.7 F 92 H 20 110/59 L 95 04/08/17 08:03 04/08/17 11:12 04/08/17 08:03 04/08/17 11:12 04/08/17 11:12 - Medications Medications: Current Medications Al Hydrox/Mg Hydrox/Simethicone (Maalox Plus 30 Ml) 30 ml PO Q6 PRN PRN Reason: Indigestion / Heartburn Last Admin: 04/07/17 13:27 Dose: 30 ml Albuterol (Ventolin Hfa 90 Mcg/Actuation (8 G)) 2 puff IH RQ6 PRN PRN Reason: Wheezing Last Admin: 04/08/17 05:41 Dose: 2 puff Albuterol/Ipratropium (Duoneb 3 Mg/0.5 Mg (3 Ml) Ud) 3 ml INH RQID [facility] Last Admin: 04/08/17 11:14 Dose: 3 ml Buspirone HCl (Buspar) 5 mg PO TID [facility] Last Admin: 04/08/17 12:27 Dose: 5 mg Docusate Sodium (Colace) 100 mg PO BID [facility] Last Admin: 04/08/17 08:56 Dose: 100 mg Folic Acid (Folic Acid) 1 mg PO DAILY [facility] Last Admin: 04/08/17 08:51 Dose: 1 mg Guaifenesin/Dextromethorphan (Mucinex-Dm 600-30 Mg) 1 tab PO BID [facility] Last Admin: 04/08/17 08:50 Dose: 1 tab Lorazepam (Ativan) 0.5 mg PO TID PRN PRN Reason: Anxiety Last Admin: 04/07/17 23:08 Dose: 0.5 mg Nicotine (Nicoderm Cq) 1 patch TD DAILY [facility] Last Admin: 04/08/17 08:51 Dose: 1 patch Polyethylene Glycol (Miralax) 17 gm PO ONCE PRN PRN Reason: Constipation Last Admin: 04/04/17 21:37 Dose: 17 gm Sodium Chloride (Sodium Chloride Tab) 1 gm PO TID [facility] Stop: 04/09/17 09:01 Last Admin: 04/08/17 12:27 Dose: 1 gm Thiamine HCl (Vitamin B1 Tab) 100 mg PO DAILY [facility] Last Admin: 04/08/17 08:52 Dose: 100 mg - Labs Labs: 04/06/17 05:45 04/08/17 08:50 - Respiratory Exam Respiratory Exam: Clear to Ausculation Bilateral - Cardiovascular Exam Cardiovascular Exam: REGULAR RHYTHM, +S1, +S2 Assessment and Plan - Assessment and Plan (Free Text) Assessment: S/P RIGHT HIP REPLACEMENT BENIGN PVS COPD Plan: CONTINUE BRONCHODILATORS CONTINUE PHYSICAL THERAPY
[2017-04-08] MEDS ORDERED: Oxycodone/Acetaminophen 5/325 mg Tab PO PRN (14:50)
[2017-04-08] MEDS: Alum-Mag Hydrox-Simethicone Susp (30 mL) PO PRN (16:52)
[2017-04-08] MEDS ORDERED: Potassium Chloride 20 mEq ER Tab PO ONE (20:12)
--- NOTE | 2017-04-08 20:16 | CP.PCM.PN ---
Subjective - Date & Time of Evaluation Date of Evaluation: 04/08/17 Time of Evaluation: 20:15 - Subjective Subjective: pt is jennifer nd examined, follow up consult is dictated #[id number] d/c nacl tab add lasix 40 mg ivp x1 add kcl 40 meq po x 1now bmp, mg in am Objective - Vital Signs/Intake and Output Vital Signs (last 24 hours): Temp Pulse Resp BP Pulse Ox 97.9 F 102 H 20 118/76 91 L 04/08/17 16:28 04/08/17 16:28 04/08/17 16:28 04/08/17 16:28 04/08/17 16:28 - Medications Medications: Current Medications Al Hydrox/Mg Hydrox/Simethicone (Maalox Plus 30 Ml) 30 ml PO Q6 PRN PRN Reason: Indigestion / Heartburn Last Admin: 04/08/17 16:52 Dose: 30 ml Albuterol (Ventolin Hfa 90 Mcg/Actuation (8 G)) 2 puff IH RQ6 PRN PRN Reason: Wheezing Last Admin: 04/08/17 05:41 Dose: 2 puff Albuterol/Ipratropium (Duoneb 3 Mg/0.5 Mg (3 Ml) Ud) 3 ml INH RQID [facility] Last Admin: 04/08/17 19:10 Dose: 3 ml Buspirone HCl (Buspar) 5 mg PO TID [facility] Last Admin: 04/08/17 16:08 Dose: 5 mg Docusate Sodium (Colace) 100 mg PO BID [facility] Last Admin: 04/08/17 16:08 Dose: 100 mg Enoxaparin Sodium (Lovenox) 40 mg SC DAILY [facility] PRN Reason: Protocol Folic Acid (Folic Acid) 1 mg PO DAILY [facility] Last Admin: 04/08/17 08:51 Dose: 1 mg Furosemide (Lasix) 40 mg IVP STAT ST[facility] Stop: 04/08/17 20:13 Guaifenesin/Dextromethorphan (Mucinex-Dm 600-30 Mg) 1 tab PO BID [facility] Last Admin: 04/08/17 16:08 Dose: 1 tab Lorazepam (Ativan) 0.5 mg PO TID PRN PRN Reason: Anxiety Last Admin: 04/08/17 16:08 Dose: 0.5 mg Nicotine (Nicoderm Cq) 1 patch TD DAILY [facility] Last Admin: 04/08/17 08:51 Dose: 1 patch Oxycodone/Acetaminophen (Percocet 5/325 Mg Tab) 1 tab PO Q4 PRN PRN Reason: Pain, moderate (4-7) Stop: 04/11/17 14:51 Oxycodone/Acetaminophen (Percocet 5/325 Mg Tab) 2 tab PO Q6 PRN PRN Reason: Pain, severe (8-10) Stop: 04/11/17 14:52 Polyethylene Glycol (Miralax) 17 gm PO ONCE PRN PRN Reason: Constipation Last Admin: 04/04/17 21:37 Dose: 17 gm Potassium Chloride (K-Dur 20 Meq Er Tab) 40 meq PO ONCE ONE Stop: 04/08/17 20:13 Thiamine HCl (Vitamin B1 Tab) 100 mg PO DAILY [facility] Last Admin: 04/08/17 08:52 Dose: 100 mg - Labs Labs: 04/06/17 05:45 04/08/17 08:50
--- NOTE | 2017-04-09 02:44 | CON ---
FOLLOWUP RENAL CONSULTATION LOCATION: The patient located in room 705, bed 1. REQUESTED BY: Tyson Sharif DO REASON FOR RENAL FOLLOWUP: Hypernatremia and for further evaluation. HISTORY OF PRESENT ILLNESS: Mr. Flores is 76-year-old elderly male with the history of smoker, EtOH abuse, COPD, status post fall, was admitted with the fracture of the right hip, status post right total hip replacement, was admitted to transitional care unit for physical therapy. The patient is not in acute distress. Denies any chest pain, palpitations. Denies any fever cough. Denies any abdominal pain, nausea, vomiting, or diarrhea. The patient has complaints of scrotal swelling and also slight drainage on the right hip surgery region. No fever. No cough. PHYSICAL EXAMINATION: VITAL SIGNS: As follows; blood pressure 109/64, pulse 98, respiration 20, temperature 97.7, saturation 90%, height 6 feet and weight is 166 pounds. GENERAL: Mr. Flores is a 76-year-old elderly male, moderately built, moderate nourished, not in acute in distress. HEENT: Pupils normal and reactive to light and accommodation. Conjunctiva pink. Sclera anicteric. Tongue is moist. Trachea is midline. LUNGS: Symmetric on both sides. Bilateral breath sounds are present. Occasional basal crackles present. CARDIOVASCULAR: [place] at the fifth intercostal space, midclavicular line. S1 and S2 audible. No murmur or gallop. ABDOMEN: Normal in appears. Soft and tympanic. No guarding. No rigidity. No hepatosplenomegaly. CENTRAL NERVOUS SYSTEM: The patient is alert, awake, and oriented x3. Nonfocal neuro examination. Cranial nerves II through XII grossly intact. Sensory and motor system is within normal limits. EXTREMITIES: No cyanosis, no clubbing, no edema. GENITAL: The patient has a bilateral scrotal swelling. CURRENT MEDICATIONS: Include as follows Ativan 0.5 mg p.o. t.i.d., BuSpar 5 mg p.o. t.i.d. and Colace 100 mg p.o. b.i.d., DuoNeb inhaler, folic acid, Lovenox 40 mg subcutaneous daily, Maalox, and also MiraLax p.r.n and Nicotine patch and Percocet one tablet p.o. q. 6 hours p.r.n. and Ventolin inhaler 2 puffs q. 4 hours p.r.n. and thiamine 100 mg p.o. daily. LABORATORY DATA: Include as follows; as of 04/08/2017, sodium 132, potassium 3.4, chloride 99, CO2 of 26, BUN 9, creatinine 0.7, glucose 130, and calcium 8.5. ASSESSMENT: In summary, Mr. Flores is a 76-year-old elderly male with the history of chronic obstructive pulmonary disease, smoker, EtOH abuse, statu post fall, status post right hip replacement with hypernatremia and scrotal swelling. 1. Hypernatremia most likely secondary to syndrome of inappropriate secretion of antidiuretic hormone. Serum sodium improved to 132 with sodium chloride tablet. 2. Chronic obstructive pulmonary disease. 3. Rule out congestive heart failure and fluid retention. PLAN: We will discontinue sodium chloride tablet and will start Lasix 20 mg p.o. times 1 dose and consider echocardiogram if not done recently. We will follow with you. CT scan consistent with the mild bilateral pleural effusion. Thank you for allowing me to participate in your patient's care. Lopez Nicolas MD
[2017-04-09] MEDS: Oxycodone/Acetaminophen 5/325 mg Tab PO PRN ×2 (06:16→22:51)
[2017-04-09] MEDS: Albuterol-Ipratrop 3 mg / 0.5 (3 ml) UD INH SCH ×4 (07:28→19:09)
[2017-04-09] MEDS: guaiFENesin-DM 600-30 mg ER Tab PO SCH ×2 (08:26→16:42)
[2017-04-09] MEDS: Enoxaparin 40 mg Syringe SC SCH (08:26)
--- NOTE | 2017-04-09 08:52 | CP.PCM.PN ---
Subjective - Date & Time of Evaluation Date of Evaluation: 04/09/19 Time of Evaluation: 07:45 - Subjective Subjective: NO CHEST PAIN, PALPITATIONS OR SOB Objective - Vital Signs/Intake and Output Vital Signs (last 24 hours): Temp Pulse Resp BP Pulse Ox 97.9 F 90 20 100/65 97 04/09/17 07:54 04/09/17 07:54 04/09/17 07:54 04/09/17 07:54 04/09/17 07:54 - Medications Medications: Current Medications Al Hydrox/Mg Hydrox/Simethicone (Maalox Plus 30 Ml) 30 ml PO Q6 PRN PRN Reason: Indigestion / Heartburn Last Admin: 04/08/17 16:52 Dose: 30 ml Albuterol (Ventolin Hfa 90 Mcg/Actuation (8 G)) 2 puff IH RQ6 PRN PRN Reason: Wheezing Last Admin: 04/08/17 05:41 Dose: 2 puff Albuterol/Ipratropium (Duoneb 3 Mg/0.5 Mg (3 Ml) Ud) 3 ml INH RQID [facility] Last Admin: 04/09/17 07:28 Dose: 3 ml Buspirone HCl (Buspar) 5 mg PO TID [facility] Last Admin: 04/09/17 08:26 Dose: 5 mg Docusate Sodium (Colace) 100 mg PO BID [facility] Last Admin: 04/09/17 08:26 Dose: 100 mg Enoxaparin Sodium (Lovenox) 40 mg SC DAILY [facility] PRN Reason: Protocol Last Admin: 04/09/17 08:26 Dose: 40 mg Folic Acid (Folic Acid) 1 mg PO DAILY [facility] Last Admin: 04/09/17 08:27 Dose: 1 mg Furosemide (Lasix) 20 mg PO DAILY [facility] Guaifenesin/Dextromethorphan (Mucinex-Dm 600-30 Mg) 1 tab PO BID [facility] Last Admin: 04/09/17 08:26 Dose: 1 tab Lorazepam (Ativan) 0.5 mg PO TID PRN PRN Reason: Anxiety Last Admin: 04/09/17 00:05 Dose: 0.5 mg Nicotine (Nicoderm Cq) 1 patch TD DAILY [facility] Last Admin: 04/08/17 08:51 Dose: 1 patch Oxycodone/Acetaminophen (Percocet 5/325 Mg Tab) 1 tab PO Q4 PRN PRN Reason: Pain, moderate (4-7) Stop: 04/11/17 14:51 Oxycodone/Acetaminophen (Percocet 5/325 Mg Tab) 2 tab PO Q6 PRN PRN Reason: Pain, severe (8-10) Stop: 04/11/17 14:52 Last Admin: 04/09/17 06:16 Dose: 2 tab Polyethylene Glycol (Miralax) 17 gm PO ONCE PRN PRN Reason: Constipation Last Admin: 04/04/17 21:37 Dose: 17 gm Thiamine HCl (Vitamin B1 Tab) 100 mg PO DAILY [facility] Last Admin: 04/09/17 08:26 Dose: 100 mg - Labs Labs: 04/06/17 05:45 04/08/17 08:50 - Respiratory Exam Respiratory Exam: Clear to Ausculation Bilateral - Cardiovascular Exam Cardiovascular Exam: REGULAR RHYTHM, +S1, +S2 - Extremities Exam Extremities Exam: Normal Inspection - Additional Findings Additional findings: NEPHROLOGY NOTE SEEN Assessment and Plan - Assessment and Plan (Free Text) Assessment: S/P RIGHT THR BENIGN PVCS COPD HYPONATREMIA Plan: CONTINUE BRONCHODILATORS, LOVENOX AND PAIN MEDS CONTINUE REHAB
[2017-04-09 08:54] LABS: BLOOD UREA NITROGEN 10 mg/dl (9-20); CALCIUM 8.6 mg/dL (8.4-10.2); CARBON DIOXIDE 27 mmol/L (22-30); CHLORIDE 99 mmol/L (98-107); GFR AFRICAN-AMERICAN > 60; GLUCOSE,RANDOM 103 mg/dL (75-110); POTASSIUM 4.1 MMOL/L (3.6-5.0); SODIUM 133 mmol/l (132-148)
--- NOTE | 2017-04-09 18:28 | CP.PCM.PN ---
Subjective - Date & Time of Evaluation Date of Evaluation: 04/09/17 Time of Evaluation: 18:27 - Subjective Subjective: pt is seen and examined,follow up consult is dictated #[id number] Objective - Vital Signs/Intake and Output Vital Signs (last 24 hours): Temp Pulse Resp BP Pulse Ox 97.7 F 103 H 20 99/58 L 94 L 04/09/17 16:46 04/09/17 16:46 04/09/17 16:46 04/09/17 16:46 04/09/17 16:46 - Medications Medications: Current Medications Al Hydrox/Mg Hydrox/Simethicone (Maalox Plus 30 Ml) 30 ml PO Q6 PRN PRN Reason: Indigestion / Heartburn Last Admin: 04/08/17 16:52 Dose: 30 ml Albuterol (Ventolin Hfa 90 Mcg/Actuation (8 G)) 2 puff IH RQ6 PRN PRN Reason: Wheezing Last Admin: 04/08/17 05:41 Dose: 2 puff Albuterol/Ipratropium (Duoneb 3 Mg/0.5 Mg (3 Ml) Ud) 3 ml INH RQID [facility] Last Admin: 04/09/17 15:15 Dose: 3 ml Buspirone HCl (Buspar) 5 mg PO TID [facility] Last Admin: 04/09/17 16:43 Dose: 5 mg Docusate Sodium (Colace) 100 mg PO BID [facility] Last Admin: 04/09/17 16:42 Dose: 100 mg Enoxaparin Sodium (Lovenox) 40 mg SC DAILY [facility] PRN Reason: Protocol Last Admin: 04/09/17 08:26 Dose: 40 mg Folic Acid (Folic Acid) 1 mg PO DAILY [facility] Last Admin: 04/09/17 08:27 Dose: 1 mg Furosemide (Lasix) 20 mg PO DAILY [facility] Last Admin: 04/09/17 10:56 Dose: 20 mg Guaifenesin/Dextromethorphan (Mucinex-Dm 600-30 Mg) 1 tab PO BID [facility] Last Admin: 04/09/17 16:42 Dose: 1 tab Lorazepam (Ativan) 0.5 mg PO TID PRN PRN Reason: Anxiety Last Admin: 04/09/17 00:05 Dose: 0.5 mg Nicotine (Nicoderm Cq) 1 patch TD DAILY [facility] Last Admin: 04/09/17 09:02 Dose: 1 patch Oxycodone/Acetaminophen (Percocet 5/325 Mg Tab) 1 tab PO Q4 PRN PRN Reason: Pain, moderate (4-7) Stop: 04/11/17 14:51 Oxycodone/Acetaminophen (Percocet 5/325 Mg Tab) 2 tab PO Q6 PRN PRN Reason: Pain, severe (8-10) Stop: 04/11/17 14:52 Last Admin: 04/09/17 06:16 Dose: 2 tab Polyethylene Glycol (Miralax) 17 gm PO ONCE PRN PRN Reason: Constipation Last Admin: 04/04/17 21:37 Dose: 17 gm Thiamine HCl (Vitamin B1 Tab) 100 mg PO DAILY [facility] Last Admin: 04/09/17 08:26 Dose: 100 mg - Labs Labs: 04/06/17 05:45 04/09/17 08:00
--- NOTE | 2017-04-10 06:25 | CON ---
FOLLOWUP RENAL CONSULTATION LOCATION: The patient is located in room 705, bed 1. HISTORY OF PRESENT ILLNESS: The patient is a 76-year-old elderly male with a history of EtOH abuse, smoking, COPD, status post fall in house on 03/29/2017, was admitted with injury to the right hip and fracture of the right hip, status post right hip total replacement, subsequently the patient was transferred to transitional care unit, renal consult was requested for evaluation of hyponatremia. The patient is not in acute distress, feeling slightly better after initiation of the Lasix. The patient was given Lasix this morning another dose 20 mg. The patient is not in acute distress. Denies any complaints. Denies any chest pain, palpitation. Denies any fever, cough. Complains of less scrotal swelling today. No edema of the legs. PHYSICAL EXAMINATION VITAL SIGNS: As follows; blood pressure 109/63, pulse 101, respirations 20, temperature 97.5, and saturation 91%. Height 6 feet, weight is 166 pounds. GENERAL: The patient is a 76 years old elderly male, moderately built, moderately nourished, not in acute distress. HEENT: Pupils are normal and reactive to light and accommodation. Conjunctivae pink. Sclerae anicteric. Tongue is moist. Trachea is midline. LUNGS: Symmetric on both sides. Bilateral breath sounds present, clear on auscultation. CARDIOVASCULAR SYSTEM: [place] at the fifth intercostal space, midclavicular line, S1 and S2 audible. No murmur. No gallop. ABDOMEN: Normal in appearance. Soft and tympanic. No guarding. No rigidity. No hepatosplenomegaly. CENTRAL NERVOUS SYSTEM: The patient is alert, awake, and oriented x3. Nonfocal on examination. Cranial nerves II through XII grossly intact. Sensory and motor system is within normal limits. EXTREMITIES: No cyanosis. No clubbing. No edema. CURRENT MEDICATIONS: Include as follows: Ativan 0.5 mg p.o. t.i.d., BuSpar 5 mg p.o. t.i.d., Colace 100 mg p.o. b.i.d., DuoNeb inhaler, folic acid, Lasix 20 mg p.o. daily, Lovenox 40 mg subcutaneous daily, simethicone and MiraLax p.r.n., NicoDerm patch, Percocet 1 tablet q. 6 hours p.r.n., albuterol inhaler and thiamine 100 mg p.o. daily. LABORATORY DATA: Include as follows; as of 04/09/2017, sodium 133, potassium 4.1, chloride 99, CO2 of 27, BUN 10, creatinine 0.7, glucose 103, calcium 8.6 and magnesium 2.0. ASSESSMENT: In summary, the patient is a 76 years old elderly male with a history of EtOH abuse, smoking, chronic obstructive pulmonary disease, status post fall with fracture of the right hip, status post right hip replacement with hyponatremia. 1. Hyponatremia, most likely secondary to syndrome of inappropriate antidiuresis secondary to pain, cannot rule out secondary to hypervolemic hypotonic hyponatremia. We will continue gentle diuresis, Lasix 20 mg p.o. daily. Continue all his current medications. Continue physical therapy for the rehab. 2. Chronic obstructive pulmonary disease. Continue DuoNeb inhaler. 3. Anemia secondary to recent surgery and consider to check total iron-binding capacity, ferritin. Add multivitamin 1 tablet p.o. daily. We will follow with you. Thank you for allowing me to participate in your patient's care. Lopez Nicolas MD
[2017-04-10] MEDS: Albuterol-Ipratrop 3 mg / 0.5 (3 ml) UD INH SCH ×4 (07:27→19:07)
[2017-04-10 08:54] LABS: BLOOD UREA NITROGEN 11 mg/dl (9-20); CALCIUM 8.5 mg/dL (8.4-10.2); CARBON DIOXIDE 25 mmol/L (22-30); CHLORIDE 99 mmol/L (98-107); GFR AFRICAN-AMERICAN > 60; GLUCOSE,RANDOM 94 mg/dL (75-110); SODIUM 133 mmol/l (132-148)
[2017-04-10] MEDS: guaiFENesin-DM 600-30 mg ER Tab PO SCH ×2 (08:59→16:14)
[2017-04-10] MEDS: Enoxaparin 40 mg Syringe SC SCH (09:00)
[2017-04-10] MEDS: Oxycodone/Acetaminophen 5/325 mg Tab PO PRN ×2 (10:42→22:38)
--- NOTE | 2017-04-10 13:36 | CP.PCM.PN ---
Subjective - Date & Time of Evaluation Date of Evaluation: 04/10/17 Time of Evaluation: 08:45 - Subjective Subjective: NO CHEST PAIN OR SOB Objective - Vital Signs/Intake and Output Vital Signs (last 24 hours): Temp Pulse Resp BP Pulse Ox 97.5 F L 82 20 115/62 99 04/10/17 10:00 04/10/17 10:00 04/10/17 10:00 04/10/17 10:00 04/10/17 10:00 - Medications Medications: Current Medications Al Hydrox/Mg Hydrox/Simethicone (Maalox Plus 30 Ml) 30 ml PO Q6 PRN PRN Reason: Indigestion / Heartburn Last Admin: 04/08/17 16:52 Dose: 30 ml Albuterol (Ventolin Hfa 90 Mcg/Actuation (8 G)) 2 puff IH RQ6 PRN PRN Reason: Wheezing Last Admin: 04/08/17 05:41 Dose: 2 puff Albuterol/Ipratropium (Duoneb 3 Mg/0.5 Mg (3 Ml) Ud) 3 ml INH RQID [facility] Last Admin: 04/10/17 11:19 Dose: Not Given Buspirone HCl (Buspar) 5 mg PO TID [facility] Last Admin: 04/10/17 12:40 Dose: 5 mg Docusate Sodium (Colace) 100 mg PO BID [facility] Last Admin: 04/10/17 09:00 Dose: 100 mg Enoxaparin Sodium (Lovenox) 40 mg SC DAILY [facility] PRN Reason: Protocol Last Admin: 04/10/17 09:00 Dose: 40 mg Folic Acid (Folic Acid) 1 mg PO DAILY [facility] Last Admin: 04/10/17 09:00 Dose: 1 mg Furosemide (Lasix) 20 mg PO DAILY [facility] Last Admin: 04/10/17 09:00 Dose: 20 mg Guaifenesin/Dextromethorphan (Mucinex-Dm 600-30 Mg) 1 tab PO BID [facility] Last Admin: 04/10/17 08:59 Dose: 1 tab Lorazepam (Ativan) 0.5 mg PO TID PRN PRN Reason: Anxiety Last Admin: 04/09/17 00:05 Dose: 0.5 mg Nicotine (Nicoderm Cq) 1 patch TD DAILY [facility] Last Admin: 04/10/17 09:00 Dose: 1 patch Oxycodone/Acetaminophen (Percocet 5/325 Mg Tab) 1 tab PO Q4 PRN PRN Reason: Pain, moderate (4-7) Stop: 04/11/17 14:51 Oxycodone/Acetaminophen (Percocet 5/325 Mg Tab) 2 tab PO Q6 PRN PRN Reason: Pain, severe (8-10) Stop: 04/11/17 14:52 Last Admin: 04/10/17 10:42 Dose: 2 tab Polyethylene Glycol (Miralax) 17 gm PO ONCE PRN PRN Reason: Constipation Last Admin: 04/04/17 21:37 Dose: 17 gm Thiamine HCl (Vitamin B1 Tab) 100 mg PO DAILY [facility] Last Admin: 04/10/17 09:01 Dose: 100 mg - Labs Labs: 04/06/17 05:45 04/10/17 08:00 - Respiratory Exam Respiratory Exam: Clear to Ausculation Bilateral - Cardiovascular Exam Cardiovascular Exam: REGULAR RHYTHM, +S1, +S2 - Exam Additional comments: SCROTAL SWELLING DECREASING WITH FUROSEMIDE Assessment and Plan - Assessment and Plan (Free Text) Assessment: S/P RIGHT HIP REPLACEMENT SINGLE PVCS COPD Plan: CONTINUE LOVENOX, BRONCHODILATORS AND FUROSEMIDE CONTINUE REHAB
[2017-04-11] MEDS: Albuterol-Ipratrop 3 mg / 0.5 (3 ml) UD INH SCH ×4 (07:32→19:33)
[2017-04-11] MEDS: Oxycodone/Acetaminophen 5/325 mg Tab PO PRN (09:20)
[2017-04-11] MEDS: Enoxaparin 40 mg Syringe SC SCH (09:21)
[2017-04-11] MEDS: guaiFENesin-DM 600-30 mg ER Tab PO SCH ×2 (09:21→17:26)
--- NOTE | 2017-04-11 10:16 | CP.PCM.PN ---
Subjective - Date & Time of Evaluation Date of Evaluation: 04/11/17 Time of Evaluation: 09:40 - Subjective Subjective: NO CHEST PAIN OR SOB DOING BETTER WITH REHAB Objective - Vital Signs/Intake and Output Vital Signs (last 24 hours): Temp Pulse Resp BP Pulse Ox 97.7 F 77 20 102/61 99 04/11/17 07:54 04/11/17 07:54 04/11/17 07:54 04/11/17 09:21 04/11/17 07:54 - Medications Medications: Current Medications Al Hydrox/Mg Hydrox/Simethicone (Maalox Plus 30 Ml) 30 ml PO Q6 PRN PRN Reason: Indigestion / Heartburn Last Admin: 04/08/17 16:52 Dose: 30 ml Albuterol (Ventolin Hfa 90 Mcg/Actuation (8 G)) 2 puff IH RQ6 PRN PRN Reason: Wheezing Last Admin: 04/08/17 05:41 Dose: 2 puff Albuterol/Ipratropium (Duoneb 3 Mg/0.5 Mg (3 Ml) Ud) 3 ml INH RQID [facility] Last Admin: 04/11/17 07:32 Dose: 3 ml Buspirone HCl (Buspar) 5 mg PO TID [facility] Last Admin: 04/11/17 09:58 Dose: Not Given Docusate Sodium (Colace) 100 mg PO BID [facility] Last Admin: 04/11/17 09:22 Dose: 100 mg Enoxaparin Sodium (Lovenox) 40 mg SC DAILY [facility] PRN Reason: Protocol Last Admin: 04/11/17 09:21 Dose: 40 mg Folic Acid (Folic Acid) 1 mg PO DAILY [facility] Last Admin: 04/11/17 09:21 Dose: 1 mg Furosemide (Lasix) 20 mg PO DAILY [facility] Last Admin: 04/11/17 09:21 Dose: 20 mg Guaifenesin/Dextromethorphan (Mucinex-Dm 600-30 Mg) 1 tab PO BID [facility] Last Admin: 04/11/17 09:21 Dose: 1 tab Lorazepam (Ativan) 0.5 mg PO TID PRN PRN Reason: Anxiety Last Admin: 04/09/17 00:05 Dose: 0.5 mg Nicotine (Nicoderm Cq) 1 patch TD DAILY [facility] Last Admin: 04/11/17 09:20 Dose: 1 patch Oxycodone/Acetaminophen (Percocet 5/325 Mg Tab) 1 tab PO Q4 PRN PRN Reason: Pain, moderate (4-7) Stop: 04/11/17 14:51 Oxycodone/Acetaminophen (Percocet 5/325 Mg Tab) 2 tab PO Q6 PRN PRN Reason: Pain, severe (8-10) Stop: 04/11/17 14:52 Last Admin: 04/11/17 09:20 Dose: 2 tab Thiamine HCl (Vitamin B1 Tab) 100 mg PO DAILY [facility] Last Admin: 04/11/17 09:21 Dose: 100 mg - Labs Labs: 04/06/17 05:45 04/10/17 08:00 - Respiratory Exam Respiratory Exam: Clear to Ausculation Bilateral - Cardiovascular Exam Cardiovascular Exam: REGULAR RHYTHM, +S1, +S2 Assessment and Plan - Assessment and Plan (Free Text) Assessment: S/P RIGHT HIP REPLACEMENT SINGLE PVCS COPD Plan: CONTINUE BRONCHODILATORS, FUROSEMIDE AND LOVENOX CONTINUE REHAB
--- NOTE | 2017-04-11 11:39 | CP.PCM.PN ---
Subjective - Date & Time of Evaluation Date of Evaluation: 04/11/17 Time of Evaluation: 11:38 - Subjective Subjective: pt is seen and examined, follow up consult is dictated #[id number] d/c lasix Objective - Vital Signs/Intake and Output Vital Signs (last 24 hours): Temp Pulse Resp BP Pulse Ox 97.7 F 77 20 102/61 99 04/11/17 07:54 04/11/17 07:54 04/11/17 07:54 04/11/17 09:21 04/11/17 07:54 - Medications Medications: Current Medications Al Hydrox/Mg Hydrox/Simethicone (Maalox Plus 30 Ml) 30 ml PO Q6 PRN PRN Reason: Indigestion / Heartburn Last Admin: 04/08/17 16:52 Dose: 30 ml Albuterol (Ventolin Hfa 90 Mcg/Actuation (8 G)) 2 puff IH RQ6 PRN PRN Reason: Wheezing Last Admin: 04/08/17 05:41 Dose: 2 puff Albuterol/Ipratropium (Duoneb 3 Mg/0.5 Mg (3 Ml) Ud) 3 ml INH RQID [facility] Last Admin: 04/11/17 11:18 Dose: Not Given Buspirone HCl (Buspar) 5 mg PO TID [facility] Last Admin: 04/11/17 09:58 Dose: Not Given Docusate Sodium (Colace) 100 mg PO BID [facility] Last Admin: 04/11/17 09:22 Dose: 100 mg Enoxaparin Sodium (Lovenox) 40 mg SC DAILY AV PRN Reason: Protocol Last Admin: 04/11/17 09:21 Dose: 40 mg Folic Acid (Folic Acid) 1 mg PO DAILY [facility] Last Admin: 04/11/17 09:21 Dose: 1 mg Furosemide (Lasix) 20 mg PO DAILY [facility] Last Admin: 04/11/17 09:21 Dose: 20 mg Guaifenesin/Dextromethorphan (Mucinex-Dm 600-30 Mg) 1 tab PO BID [facility] Last Admin: 04/11/17 09:21 Dose: 1 tab Lorazepam (Ativan) 0.5 mg PO TID PRN PRN Reason: Anxiety Last Admin: 04/09/17 00:05 Dose: 0.5 mg Nicotine (Nicoderm Cq) 1 patch TD DAILY [facility] Last Admin: 04/11/17 09:20 Dose: 1 patch Oxycodone/Acetaminophen (Percocet 5/325 Mg Tab) 1 tab PO Q4 PRN PRN Reason: Pain, moderate (4-7) Stop: 04/11/17 14:51 Oxycodone/Acetaminophen (Percocet 5/325 Mg Tab) 2 tab PO Q6 PRN PRN Reason: Pain, severe (8-10) Stop: 04/11/17 14:52 Last Admin: 04/11/17 09:20 Dose: 2 tab Thiamine HCl (Vitamin B1 Tab) 100 mg PO DAILY [facility] Last Admin: 04/11/17 09:21 Dose: 100 mg - Labs Labs: 04/06/17 05:45 04/10/17 08:00
--- NOTE | 2017-04-11 15:17 | CP.PCM.PN ---
Subjective - Date & Time of Evaluation Date of Evaluation: 04/11/17 Time of Evaluation: 14:20 - Subjective Subjective: Pt seen and examined. Claimed she was doing better and his legs and genital edema had improved. Objective - Vital Signs/Intake and Output Vital Signs (last 24 hours): Temp Pulse Resp BP Pulse Ox 97.7 F 77 20 102/61 99 04/11/17 07:54 04/11/17 07:54 04/11/17 07:54 04/11/17 09:21 04/11/17 07:54 - Medications Medications: Current Medications Al Hydrox/Mg Hydrox/Simethicone (Maalox Plus 30 Ml) 30 ml PO Q6 PRN PRN Reason: Indigestion / Heartburn Last Admin: 04/08/17 16:52 Dose: 30 ml Albuterol (Ventolin Hfa 90 Mcg/Actuation (8 G)) 2 puff IH RQ6 PRN PRN Reason: Wheezing Last Admin: 04/08/17 05:41 Dose: 2 puff Albuterol/Ipratropium (Duoneb 3 Mg/0.5 Mg (3 Ml) Ud) 3 ml INH RQID AV Last Admin: 04/11/17 11:18 Dose: Not Given Docusate Sodium (Colace) 100 mg PO BID [facility] Last Admin: 04/11/17 09:22 Dose: 100 mg Enoxaparin Sodium (Lovenox) 40 mg SC DAILY AV PRN Reason: Protocol Last Admin: 04/11/17 09:21 Dose: 40 mg Folic Acid (Folic Acid) 1 mg PO DAILY [facility] Last Admin: 04/11/17 09:21 Dose: 1 mg Furosemide (Lasix) 20 mg PO DAILY [facility] Last Admin: 04/11/17 09:21 Dose: 20 mg Guaifenesin/Dextromethorphan (Mucinex-Dm 600-30 Mg) 1 tab PO BID [facility] Last Admin: 04/11/17 09:21 Dose: 1 tab Lorazepam (Ativan) 0.5 mg PO TID PRN PRN Reason: Anxiety Last Admin: 04/09/17 00:05 Dose: 0.5 mg Nicotine (Nicoderm Cq) 1 patch TD DAILY [facility] Last Admin: 04/11/17 09:20 Dose: 1 patch Thiamine HCl (Vitamin B1 Tab) 100 mg PO DAILY [facility] Last Admin: 04/11/17 09:21 Dose: 100 mg - Labs Labs: 04/06/17 05:45 04/10/17 08:00 - Constitutional Appears: No Acute Distress - Head Exam Head Exam: ATRAUMATIC - Eye Exam Eye Exam: absent: Scleral icterus - ENT Exam ENT Exam: Mucous Membranes Moist - Neck Exam Neck Exam: absent: Meningismus - Respiratory Exam Respiratory Exam: absent: Rhonchi, Wheezes, Respiratory Distress - Cardiovascular Exam Cardiovascular Exam: REGULAR RHYTHM, +S1, +S2 - GI/Abdominal Exam GI & Abdominal Exam: Soft. absent: Tenderness - Rectal Exam Rectal Exam: Deferred - Extremities Exam Extremities Exam: Pedal Edema (continue to improve) - Neurological Exam Neurological Exam: Alert, Oriented x3 - Psychiatric Exam Psychiatric exam: Flat Affect - Skin Skin Exam: Pallor Assessment and Plan - Assessment and Plan (Free Text) Assessment: 76 yo male with history of COPD and peripheral neuropathy of the right foot admitted in [facility] on 03/29/2017 because of fracture of the right hip sustained after falling on his kitchen. He was transferred to [facility] on 04/01/2017 and had right THR the next day. Patient received 1 unit of PRBC because of anemia secondary to blood loss. He was transferred to TCU yesterday to continue PT. 1. Hip fracture, right post fall s/p ORIF day 9 continue pain management Continue PT as per ortho recommendations 2. COPD (chronic obstructive pulmonary disease) Repeat CXray today showed prominent lung markings, suspicious for focal small infiltrate at the right lower lung. Hyperinflation of the lungs suspicious for COPD. Continue close monitoring O2 PRN on mucinex and Duoneb RTC No need for antibiotics since there is no signs of overt infection 3. Alcoholism watch for alcohol withdrawal on Buspar 4. Acute blood loss anemia post op Hgb: 9.3 Continue monitoring 5. Depression continue Buspar 6. Hyponatremia improved secondary to generalized edema continue Lasix 20 mg PO daily 7. DVT prophylaxis continue Lovenox
[2017-04-11] MEDS ORDERED: Oxycodone/Acetaminophen 5/325 mg Tab PO PRN (20:43)
[2017-04-12] MEDS: Oxycodone/Acetaminophen 5/325 mg Tab PO PRN ×3 (00:53→21:54)
[2017-04-12] MEDS: Albuterol-Ipratrop 3 mg / 0.5 (3 ml) UD INH SCH ×4 (08:02→19:22)
[2017-04-12] MEDS: guaiFENesin-DM 600-30 mg ER Tab PO SCH ×2 (09:24→16:31)
[2017-04-12] MEDS: Enoxaparin 40 mg Syringe SC SCH (09:26)
--- NOTE | 2017-04-12 09:41 | CP.PCM.PN ---
Subjective - Date & Time of Evaluation Date of Evaluation: 02/09/17 Time of Evaluation: 09:00 - Subjective Subjective: NO CHEST PAIN, PALPITATIONS OR SOB Objective - Vital Signs/Intake and Output Vital Signs (last 24 hours): Temp Pulse Resp BP Pulse Ox 97.7 F 78 20 110/58 L 94 L 04/12/17 08:05 04/12/17 08:05 04/12/17 08:05 04/12/17 08:05 04/12/17 08:05 - Medications Medications: Current Medications Al Hydrox/Mg Hydrox/Simethicone (Maalox Plus 30 Ml) 30 ml PO Q6 PRN PRN Reason: Indigestion / Heartburn Last Admin: 04/08/17 16:52 Dose: 30 ml Albuterol (Ventolin Hfa 90 Mcg/Actuation (8 G)) 2 puff IH RQ6 PRN PRN Reason: Wheezing Last Admin: 04/08/17 05:41 Dose: 2 puff Albuterol/Ipratropium (Duoneb 3 Mg/0.5 Mg (3 Ml) Ud) 3 ml INH RQID [facility] Last Admin: 04/12/17 08:02 Dose: 3 ml Buspirone HCl (Buspar) 5 mg PO TID [facility] Last Admin: 04/12/17 09:25 Dose: 5 mg Docusate Sodium (Colace) 100 mg PO BID [facility] Last Admin: 04/12/17 09:25 Dose: 100 mg Folic Acid (Folic Acid) 1 mg PO DAILY [facility] Last Admin: 04/12/17 09:24 Dose: 1 mg Guaifenesin/Dextromethorphan (Mucinex-Dm 600-30 Mg) 1 tab PO BID [facility] Last Admin: 04/12/17 09:24 Dose: 1 tab Lorazepam (Ativan) 0.5 mg PO TID PRN PRN Reason: Anxiety Last Admin: 04/09/17 00:05 Dose: 0.5 mg Nicotine (Nicoderm Cq) 1 patch TD DAILY [facility] Last Admin: 04/12/17 09:24 Dose: 1 patch Oxycodone/Acetaminophen (Percocet 5/325 Mg Tab) 1 tab PO Q4 PRN PRN Reason: Pain, moderate (4-7) Stop: 04/14/17 20:44 Oxycodone/Acetaminophen (Percocet 5/325 Mg Tab) 2 tab PO Q6 PRN PRN Reason: Pain, severe (8-10) Stop: 04/14/17 20:45 Last Admin: 04/12/17 00:53 Dose: 2 tab Thiamine HCl (Vitamin B1 Tab) 100 mg PO DAILY [facility] Last Admin: 04/12/17 09:26 Dose: 100 mg - Labs Labs: 04/06/17 05:45 04/10/17 08:00 - Respiratory Exam Respiratory Exam: Clear to Ausculation Bilateral - Cardiovascular Exam Cardiovascular Exam: REGULAR RHYTHM, +S1, +S2 - Extremities Exam Extremities Exam: Normal Inspection Assessment and Plan - Assessment and Plan (Free Text) Assessment: S/P RIGHT THR BENIGN PVCS COPD Plan: CONTINUE BRONCHODILATORS AND PHYSICAL THERAPY
--- NOTE | 2017-04-12 09:44 | PN ---
FOLLOWUP RENAL CONSULTATION LOCATION: The patient is located in room 705, bed 1. SUBJECTIVE: Mr. 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 The patient had a fall and injury to the right hip and history of COPD, smoking, and alcohol abuse. The patient was admitted on 03/29/2017 with a fractured right hip with status post right hip replacement on 04/12/2017. Subsequently transferred to transition care unit for the physical therapy. The patient is now feeling better, not in acute distress. Denies any headache, dizziness. Denies any chest pain or palpitation. Claims his genital swelling is much better now. No complaints. No pain. PHYSICAL EXAMINATION: VITAL SIGNS: Blood pressure 135/55, pulse 97, respirations 20, temperature 97.7, and blood pressure this morning was 104/61. GENERAL: Mr. Flores is a 76-year-old elderly male, moderately built, moderately nourished, not in acute distress. HEENT: Pupils are reactive to light and accommodation. Conjunctivae pink. Sclerae anicteric. Tongue is moist. Trachea is midline. LUNGS: Symmetric on both sides. Bilateral breath sounds are present. Clear on auscultation. CVS: [place] at the fifth intercostal space, half inch medial to midclavicular line. S1 and S2 audible. No murmur or gallop. ABDOMEN: Normal in appearance, soft, tympanic. No guarding. No rigidity. No hepatosplenomegaly. CENTRAL NERVOUS SYSTEM: The patient is alert, awake, oriented x3, nonfocal. NEUROLOGIC: Cranial nerves II through XII are grossly intact. Sensory and motor system is within normal limits. EXTREMITIES: No cyanosis, no clubbing, no edema. CURRENT MEDICATIONS: Include as follows: Ativan 0.5 mg p.o. t.i.d., BuSpar 5 mg t.i.d., Colace 100 mg p.o. b.i.d., folic acid 1 mg daily, Lasix 20 mg p.o. daily, Lovenox 40 mg subcutaneous daily, simethicone, and also Nicoderm patch, Percocet 1 tablet q. 6 hours p.r.n., albuterol inhaler, and thiamine 100 mg p.o. daily. LABORATORY DATA: Include as follows; As of 04/10/2017, sodium 133, potassium 4, chloride 99, CO2 25, BUN 11, creatinine 0.7, glucose 94, calcium 8.5. ASSESSMENT AND PLAN: In summary, Mr. Flores is a 76-year-old elderly male with a history of chronic obstructive pulmonary disease, ETOH abuse, smoker, status post fall with injury to the right hip, status post right hip arthroplasty with hyponatremia, and genital swelling. 1. Hyponatremia, most likely secondary to syndrome of inappropriate antidiuretic hormone secretion secondary to recent surgery and pain. Serum sodium improved with sodium chloride tablets and subsequently, sodium chloride tablet was discontinued. 2. Mild fluid overloaded with scrotal edema. The patient was started on Lasix p.o. His fluid status is much better now. We will discontinue Lasix and continue physical therapy as per the rehab. Thank you for allowing me to participate in your patient's care. We will sign off the care at this time. Lopez Nicolas MD
--- NOTE | 2017-04-12 18:11 | PN ---
DATE: PHYSIATRY PROGRESS NOTE SUBJECTIVE: A 76-year-old male admitted to room 705, bed 1 at transitional care unit. The patient with right hip replacement, undergoing therapy. PHYSICAL EXAMINATION: VITAL SIGNS: Stable. NECK: Supple CHEST: Symmetrical. HEART: Sounds S1 and S2. ABDOMEN: Benign. EXTREMITIES: No clubbing, cyanosis or edema. NEUROLOGIC: Motor: Both upper extremities and left lower extremity, tone normal, range of motion is functional, muscle strength is good. Right lower extremity, tone normal, range of motion is functional, muscle strength is 3. Sensation to pinprick and light touch intact. Deep tendon reflexes 2+ bilaterally. Other systems are negative. IMPRESSION: Right hip replacement, gait difficulty, chronic obstructive pulmonary disease, premature ventricular contractions. PLAN: Physical and occupational therapy for range of motion, strengthening, transfers, ambulation, gait training. The patient is doing well in therapy. Continue to monitor hip incisional area. I am covering for . Wilfredo Giron MD
[2017-04-13] MEDS: Albuterol-Ipratrop 3 mg / 0.5 (3 ml) UD INH SCH ×4 (07:18→19:02)
[2017-04-13] MEDS: guaiFENesin-DM 600-30 mg ER Tab PO SCH ×2 (09:29→17:08)
[2017-04-14] MEDS: Albuterol-Ipratrop 3 mg / 0.5 (3 ml) UD INH SCH ×4 (07:36→19:54)
[2017-04-14] MEDS: guaiFENesin-DM 600-30 mg ER Tab PO SCH ×2 (08:31→16:47)
--- NOTE | 2017-04-14 11:08 | CP.PCM.PN ---
Subjective - Date & Time of Evaluation Date of Evaluation: 04/14/17 Time of Evaluation: 10:15 - Subjective Subjective: NO COMPLAINTS DOING BETTER Objective - Vital Signs/Intake and Output Vital Signs (last 24 hours): Temp Pulse Resp BP Pulse Ox 97.7 F 82 20 115/67 92 L 04/14/17 09:41 04/14/17 09:41 04/14/17 09:41 04/14/17 09:41 04/14/17 09:41 - Medications Medications: Current Medications Al Hydrox/Mg Hydrox/Simethicone (Maalox Plus 30 Ml) 30 ml PO Q6 PRN PRN Reason: Indigestion / Heartburn Last Admin: 04/08/17 16:52 Dose: 30 ml Albuterol (Ventolin Hfa 90 Mcg/Actuation (8 G)) 2 puff IH RQ6 PRN PRN Reason: Wheezing Last Admin: 04/08/17 05:41 Dose: 2 puff Albuterol/Ipratropium (Duoneb 3 Mg/0.5 Mg (3 Ml) Ud) 3 ml INH RQID [facility] Last Admin: 04/14/17 07:36 Dose: 3 ml Buspirone HCl (Buspar) 5 mg PO TID [facility] Last Admin: 04/14/17 08:31 Dose: 5 mg Docusate Sodium (Colace) 100 mg PO BID [facility] Last Admin: 04/14/17 08:31 Dose: 100 mg Folic Acid (Folic Acid) 1 mg PO DAILY [facility] Last Admin: 04/14/17 08:31 Dose: 1 mg Guaifenesin/Dextromethorphan (Mucinex-Dm 600-30 Mg) 1 tab PO BID [facility] Last Admin: 04/14/17 08:31 Dose: 1 tab Nicotine (Nicoderm Cq) 1 patch TD DAILY [facility] Last Admin: 04/14/17 08:32 Dose: 1 patch Oxycodone/Acetaminophen (Percocet 5/325 Mg Tab) 1 tab PO Q4 PRN PRN Reason: Pain, moderate (4-7) Stop: 04/14/17 20:44 Last Admin: 04/14/17 04:34 Dose: 1 tab Oxycodone/Acetaminophen (Percocet 5/325 Mg Tab) 2 tab PO Q6 PRN PRN Reason: Pain, severe (8-10) Stop: 04/14/17 20:45 Last Admin: 04/12/17 21:54 Dose: 2 tab Thiamine HCl (Vitamin B1 Tab) 100 mg PO DAILY [facility] Last Admin: 04/14/17 08:31 Dose: 100 mg - Labs Labs: 04/06/17 05:45 04/10/17 08:00 - Respiratory Exam Respiratory Exam: Clear to Ausculation Bilateral - Cardiovascular Exam Cardiovascular Exam: REGULAR RHYTHM, +S1, +S2 Assessment and Plan - Assessment and Plan (Free Text) Assessment: S/P FALL WITH RIGHT HIP FRACTURE AND RIGHT THR COPD Plan: CONTINUE BRONCHODILATORS CONTINUE PHYSICAL THERAPY
[2017-04-15] MEDS: Albuterol-Ipratrop 3 mg / 0.5 (3 ml) UD INH SCH ×5 (08:08→19:22)
[2017-04-15] MEDS: guaiFENesin-DM 600-30 mg ER Tab PO SCH ×2 (08:46→16:19)
--- NOTE | 2017-04-15 11:18 | CP.PCM.PN ---
Subjective - Date & Time of Evaluation Date of Evaluation: 04/15/17 Time of Evaluation: 09:30 - Subjective Subjective: NO CHEST PAIN THE PATIENT STATED HE GOT MORE SOB WALKING IN THE [place] TODAY WITH PHYSICAL THERAPY BUT HE DECLINED HIS RESPIRATORY TREATMENT THIS AM Objective - Vital Signs/Intake and Output Vital Signs (last 24 hours): Temp Pulse Resp BP Pulse Ox 97.5 F L 84 20 99/58 L 95 04/15/17 08:17 04/15/17 08:17 04/15/17 08:17 04/15/17 08:17 04/15/17 08:17 - Medications Medications: Current Medications Al Hydrox/Mg Hydrox/Simethicone (Maalox Plus 30 Ml) 30 ml PO Q6 PRN PRN Reason: Indigestion / Heartburn Last Admin: 04/08/17 16:52 Dose: 30 ml Albuterol (Ventolin Hfa 90 Mcg/Actuation (8 G)) 2 puff IH RQ6 PRN PRN Reason: Wheezing Last Admin: 04/08/17 05:41 Dose: 2 puff Albuterol/Ipratropium (Duoneb 3 Mg/0.5 Mg (3 Ml) Ud) 3 ml INH RQID [facility] Last Admin: 04/15/17 11:01 Dose: Not Given Buspirone HCl (Buspar) 5 mg PO TID [facility] Last Admin: 04/15/17 08:45 Dose: 5 mg Docusate Sodium (Colace) 100 mg PO BID [facility] Last Admin: 04/15/17 08:45 Dose: 100 mg Folic Acid (Folic Acid) 1 mg PO DAILY [facility] Last Admin: 04/15/17 08:46 Dose: 1 mg Guaifenesin/Dextromethorphan (Mucinex-Dm 600-30 Mg) 1 tab PO BID [facility] Last Admin: 04/15/17 08:46 Dose: 1 tab Lorazepam (Ativan) 0.5 mg PO TID PRN PRN Reason: Anxiety Last Admin: 04/14/17 23:26 Dose: 0.5 mg Nicotine (Nicoderm Cq) 1 patch TD DAILY [facility] Last Admin: 04/15/17 08:46 Dose: 1 patch Thiamine HCl (Vitamin B1 Tab) 100 mg PO DAILY [facility] Last Admin: 04/15/17 08:46 Dose: 100 mg - Labs Labs: 04/06/17 05:45 04/10/17 08:00 - Respiratory Exam Respiratory Exam: Clear to Ausculation Bilateral - Cardiovascular Exam Cardiovascular Exam: REGULAR RHYTHM, +S1, +S2 - Extremities Exam Extremities Exam: Normal Inspection Assessment and Plan - Assessment and Plan (Free Text) Assessment: S/P RHR COPD Plan: PATIENT ENCOURAGED TO TAKE HIS BRONCHODILATORS ESPECIALLY BEFORE REHAB
[2017-04-15] MEDS ORDERED: Oxycodone/Acetaminophen 5/325 mg Tab PO PRN (17:26)
[2017-04-15] MEDS: Oxycodone/Acetaminophen 5/325 mg Tab PO PRN (18:03)
[2017-04-16] MEDS: Albuterol-Ipratrop 3 mg / 0.5 (3 ml) UD INH SCH ×4 (07:47→19:33)
[2017-04-16] MEDS: guaiFENesin-DM 600-30 mg ER Tab PO SCH ×2 (08:24→16:29)
--- NOTE | 2017-04-16 11:01 | CP.PCM.PN ---
Subjective - Date & Time of Evaluation Date of Evaluation: 04/16/17 Time of Evaluation: 09:00 - Subjective Subjective: TAKING BRONCHODILATORS AND FEELS GOOD TODAY NO SOB Objective - Vital Signs/Intake and Output Vital Signs (last 24 hours): Temp Pulse Resp BP Pulse Ox 97.5 F L 84 20 99/57 L 93 L 04/16/17 10:00 04/16/17 10:00 04/16/17 10:00 04/16/17 10:00 04/16/17 10:00 - Medications Medications: Current Medications Al Hydrox/Mg Hydrox/Simethicone (Maalox Plus 30 Ml) 30 ml PO Q6 PRN PRN Reason: Indigestion / Heartburn Last Admin: 04/08/17 16:52 Dose: 30 ml Albuterol (Ventolin Hfa 90 Mcg/Actuation (8 G)) 2 puff IH RQ6 PRN PRN Reason: Wheezing Last Admin: 04/08/17 05:41 Dose: 2 puff Albuterol/Ipratropium (Duoneb 3 Mg/0.5 Mg (3 Ml) Ud) 3 ml INH RQID [facility] Last Admin: 04/16/17 07:47 Dose: 3 ml Buspirone HCl (Buspar) 5 mg PO TID [facility] Last Admin: 04/16/17 08:24 Dose: 5 mg Docusate Sodium (Colace) 100 mg PO BID [facility] Last Admin: 04/16/17 08:24 Dose: 100 mg Folic Acid (Folic Acid) 1 mg PO DAILY [facility] Last Admin: 04/16/17 08:24 Dose: 1 mg Guaifenesin/Dextromethorphan (Mucinex-Dm 600-30 Mg) 1 tab PO BID [facility] Last Admin: 04/16/17 08:24 Dose: 1 tab Lorazepam (Ativan) 0.5 mg PO TID PRN PRN Reason: Anxiety Last Admin: 04/16/17 00:30 Dose: 0.5 mg Nicotine (Nicoderm Cq) 1 patch TD DAILY [facility] Last Admin: 04/16/17 08:25 Dose: 1 patch Oxycodone/Acetaminophen (Percocet 5/325 Mg Tab) 1 tab PO Q4 PRN PRN Reason: Pain, Mild (1-3) Stop: 04/18/17 17:27 Oxycodone/Acetaminophen (Percocet 5/325 Mg Tab) 2 tab PO Q4 PRN PRN Reason: Pain, moderate (4-7) Stop: 04/18/17 17:28 Last Admin: 04/15/17 18:03 Dose: 2 tab Thiamine HCl (Vitamin B1 Tab) 100 mg PO DAILY [facility] Last Admin: 04/16/17 08:24 Dose: 100 mg - Labs Labs: 04/06/17 05:45 04/10/17 08:00 - Respiratory Exam Respiratory Exam: Clear to Ausculation Bilateral - Cardiovascular Exam Cardiovascular Exam: REGULAR RHYTHM, +S1, +S2 - Extremities Exam Extremities Exam: Normal Inspection Assessment and Plan - Assessment and Plan (Free Text) Assessment: S/P RIGHT THR COPD Plan: CONTINUE BRONCHODILATORS CONTINUE PHYSICAL THERAPY
--- NOTE | 2017-04-16 17:22 | CP.PCM.PN ---
Subjective - Date & Time of Evaluation Date of Evaluation: 04/16/17 Time of Evaluation: 17:00 - Subjective Subjective: Pt seen and examined. Keller okay but complained of constipation since 2 days ago. Genital edema resolved since 2 days ago. Objective - Vital Signs/Intake and Output Vital Signs (last 24 hours): Temp Pulse Resp BP Pulse Ox 97.7 F 85 20 106/61 95 04/16/17 17:11 04/16/17 17:11 04/16/17 17:11 04/16/17 17:11 04/16/17 17:11 - Medications Medications: Current Medications Al Hydrox/Mg Hydrox/Simethicone (Maalox Plus 30 Ml) 30 ml PO Q6 PRN PRN Reason: Indigestion / Heartburn Last Admin: 04/08/17 16:52 Dose: 30 ml Albuterol (Ventolin Hfa 90 Mcg/Actuation (8 G)) 2 puff IH RQ6 PRN PRN Reason: Wheezing Last Admin: 04/08/17 05:41 Dose: 2 puff Albuterol/Ipratropium (Duoneb 3 Mg/0.5 Mg (3 Ml) Ud) 3 ml INH RQID [facility] Last Admin: 04/16/17 15:32 Dose: 3 ml Buspirone HCl (Buspar) 5 mg PO TID [facility] Last Admin: 04/16/17 16:29 Dose: 5 mg Docusate Sodium (Colace) 100 mg PO BID [facility] Last Admin: 04/16/17 16:28 Dose: 100 mg Folic Acid (Folic Acid) 1 mg PO DAILY [facility] Last Admin: 04/16/17 08:24 Dose: 1 mg Guaifenesin/Dextromethorphan (Mucinex-Dm 600-30 Mg) 1 tab PO BID [facility] Last Admin: 04/16/17 16:29 Dose: 1 tab Lactulose (Enulose) 20 gm PO STAT ST[facility] Stop: 04/16/17 17:18 Lorazepam (Ativan) 0.5 mg PO TID PRN PRN Reason: Anxiety Last Admin: 04/16/17 00:30 Dose: 0.5 mg Nicotine (Nicoderm Cq) 1 patch TD DAILY [facility] Last Admin: 04/16/17 08:25 Dose: 1 patch Oxycodone/Acetaminophen (Percocet 5/325 Mg Tab) 1 tab PO Q4 PRN PRN Reason: Pain, Mild (1-3) Stop: 04/18/17 17:27 Oxycodone/Acetaminophen (Percocet 5/325 Mg Tab) 2 tab PO Q4 PRN PRN Reason: Pain, moderate (4-7) Stop: 04/18/17 17:28 Last Admin: 04/15/17 18:03 Dose: 2 tab Thiamine HCl (Vitamin B1 Tab) 100 mg PO DAILY [facility] Last Admin: 04/16/17 08:24 Dose: 100 mg - Labs Labs: 04/06/17 05:45 04/10/17 08:00 - Constitutional Appears: No Acute Distress - Head Exam Head Exam: ATRAUMATIC - Eye Exam Eye Exam: absent: Scleral icterus - ENT Exam ENT Exam: Mucous Membranes Moist - Neck Exam Neck Exam: absent: Meningismus - Respiratory Exam Respiratory Exam: absent: Rhonchi, Wheezes, Respiratory Distress - Cardiovascular Exam Cardiovascular Exam: REGULAR RHYTHM. absent: +S1, +S2 - GI/Abdominal Exam GI & Abdominal Exam: Soft. absent: Tenderness - Rectal Exam Rectal Exam: Deferred - Neurological Exam Neurological Exam: Alert, Oriented x3 - Psychiatric Exam Psychiatric exam: Normal Affect - Skin Skin Exam: Dry, Intact, Pallor Assessment and Plan - Assessment and Plan (Free Text) Assessment: 76 yo male with history of COPD and peripheral neuropathy of the right foot admitted in [facility] on 03/29/2017 because of fracture of the right hip sustained after falling on his kitchen. He was transferred to [facility] on 04/01/2017 and had right THR the next day. Patient received 1 unit of PRBC because of anemia secondary to blood loss. He was transferred to TCU for continuation of PT. 1. Hip fracture, right post fall s/p ORIF day 15 continue pain management Continue PT as per ortho recommendations 2. COPD (chronic obstructive pulmonary disease) O2 inhalation PRN on mucinex and Duoneb RTC 3. Alcoholism watch for alcohol withdrawal on Buspar 4. Anemia secondary to blood loss Hgb: 9.3 Continue monitoring 5. Depression continue Buspar 6. Hyponatremia resolved continue Lasix 20 mg PO daily 7. DVT prophylaxis continue Lovenox
--- NOTE | 2017-04-16 20:59 | CP.PCM.PN ---
Subjective - Date & Time of Evaluation Date of Evaluation: 04/16/17 Time of Evaluation: 13:00 - Subjective Subjective: patinet is feeling fine Objective - Vital Signs/Intake and Output Vital Signs (last 24 hours): Temp Pulse Resp BP Pulse Ox 97.7 F 85 20 106/61 95 04/16/17 17:11 04/16/17 17:11 04/16/17 17:11 04/16/17 17:11 04/16/17 17:11 - Medications Medications: Current Medications Al Hydrox/Mg Hydrox/Simethicone (Maalox Plus 30 Ml) 30 ml PO Q6 PRN PRN Reason: Indigestion / Heartburn Last Admin: 04/08/17 16:52 Dose: 30 ml Albuterol (Ventolin Hfa 90 Mcg/Actuation (8 G)) 2 puff IH RQ6 PRN PRN Reason: Wheezing Last Admin: 04/08/17 05:41 Dose: 2 puff Albuterol/Ipratropium (Duoneb 3 Mg/0.5 Mg (3 Ml) Ud) 3 ml INH RQID [facility] Last Admin: 04/16/17 19:33 Dose: 3 ml Buspirone HCl (Buspar) 5 mg PO TID [facility] Last Admin: 04/16/17 16:29 Dose: 5 mg Docusate Sodium (Colace) 100 mg PO BID [facility] Last Admin: 04/16/17 16:28 Dose: 100 mg Folic Acid (Folic Acid) 1 mg PO DAILY [facility] Last Admin: 04/16/17 08:24 Dose: 1 mg Guaifenesin/Dextromethorphan (Mucinex-Dm 600-30 Mg) 1 tab PO BID [facility] Last Admin: 04/16/17 16:29 Dose: 1 tab Lorazepam (Ativan) 0.5 mg PO TID PRN PRN Reason: Anxiety Last Admin: 04/16/17 00:30 Dose: 0.5 mg Nicotine (Nicoderm Cq) 1 patch TD DAILY [facility] Last Admin: 04/16/17 08:25 Dose: 1 patch Oxycodone/Acetaminophen (Percocet 5/325 Mg Tab) 1 tab PO Q4 PRN PRN Reason: Pain, Mild (1-3) Stop: 04/18/17 17:27 Oxycodone/Acetaminophen (Percocet 5/325 Mg Tab) 2 tab PO Q4 PRN PRN Reason: Pain, moderate (4-7) Stop: 04/18/17 17:28 Last Admin: 04/15/17 18:03 Dose: 2 tab Thiamine HCl (Vitamin B1 Tab) 100 mg PO DAILY [facility] Last Admin: 04/16/17 08:24 Dose: 100 mg - Labs Labs: 04/06/17 05:45 04/10/17 08:00 - Head Exam Head Exam: ATRAUMATIC, NORMAL INSPECTION, NORMOCEPHALIC - Eye Exam Eye Exam: EOMI, Normal appearance Pupil Exam: NORMAL ACCOMODATION, PERRL - ENT Exam ENT Exam: Mucous Membranes Moist - Respiratory Exam Respiratory Exam: Clear to Ausculation Bilateral, NORMAL BREATHING PATTERN - Cardiovascular Exam Cardiovascular Exam: REGULAR RHYTHM - Rectal Exam Rectal Exam: NORMAL INSPECTION - Exam Bimanual exam: NORMAL BIMANUAL EXAM - Extremities Exam Extremities Exam: Normal Capillary Refill, Normal Inspection Additional comments: right leg weakness status post surgery - Back Exam Back Exam: NORMAL INSPECTION - Neurological Exam Neurological Exam: Alert, Awake, CN II-XII Intact Neuro motor strength exam: Left Upper Extremity: 4, Right Upper Extremity: 4, Left Lower Extremity: 4, Right Lower Extremity: 3 - Psychiatric Exam Psychiatric exam: Normal Affect - Skin Skin Exam: Dry, Warm Assessment and Plan (1) Alcoholism Status: Acute (2) COPD (chronic obstructive pulmonary disease) Status: Chronic (3) Dyspnea Status: Acute (4) Hip fracture, right Assessment & Plan: physical, occupational therapy, removed half of the sutures put on stirristrips Status: Acute (5) Lung abscess Status: Acute (6) Prophylactic measure Status: Acute (7) Weight loss Status: Acute
[2017-04-17] MEDS: Albuterol-Ipratrop 3 mg / 0.5 (3 ml) UD INH SCH ×4 (07:21→19:38)
[2017-04-17] MEDS: guaiFENesin-DM 600-30 mg ER Tab PO SCH ×2 (10:24→16:31)
--- NOTE | 2017-04-17 13:39 | CP.PCM.PN ---
Subjective - Date & Time of Evaluation Date of Evaluation: 04/17/17 Time of Evaluation: 08:45 - Subjective Subjective: NO COMPLAINTS Objective - Vital Signs/Intake and Output Vital Signs (last 24 hours): Temp Pulse Resp BP Pulse Ox 97.2 F L 77 20 101/55 L 99 04/17/17 07:44 04/17/17 07:44 04/17/17 07:44 04/17/17 07:44 04/17/17 07:44 - Medications Medications: Current Medications Al Hydrox/Mg Hydrox/Simethicone (Maalox Plus 30 Ml) 30 ml PO Q6 PRN PRN Reason: Indigestion / Heartburn Last Admin: 04/08/17 16:52 Dose: 30 ml Albuterol (Ventolin Hfa 90 Mcg/Actuation (8 G)) 2 puff IH RQ6 PRN PRN Reason: Wheezing Last Admin: 04/08/17 05:41 Dose: 2 puff Albuterol/Ipratropium (Duoneb 3 Mg/0.5 Mg (3 Ml) Ud) 3 ml INH RQID [facility] Last Admin: 04/17/17 11:01 Dose: 3 ml Buspirone HCl (Buspar) 5 mg PO TID [facility] Last Admin: 04/17/17 13:24 Dose: 5 mg Docusate Sodium (Colace) 100 mg PO BID [facility] Last Admin: 04/17/17 10:24 Dose: 100 mg Folic Acid (Folic Acid) 1 mg PO DAILY [facility] Last Admin: 04/17/17 10:24 Dose: 1 mg Guaifenesin/Dextromethorphan (Mucinex-Dm 600-30 Mg) 1 tab PO BID [facility] Last Admin: 04/17/17 10:24 Dose: 1 tab Lorazepam (Ativan) 0.5 mg PO TID PRN PRN Reason: Anxiety Last Admin: 04/17/17 01:26 Dose: 0.5 mg Nicotine (Nicoderm Cq) 1 patch TD DAILY [facility] Last Admin: 04/17/17 10:24 Dose: 1 patch Oxycodone/Acetaminophen (Percocet 5/325 Mg Tab) 1 tab PO Q4 PRN PRN Reason: Pain, Mild (1-3) Stop: 04/18/17 17:27 Oxycodone/Acetaminophen (Percocet 5/325 Mg Tab) 2 tab PO Q4 PRN PRN Reason: Pain, moderate (4-7) Stop: 04/18/17 17:28 Last Admin: 04/15/17 18:03 Dose: 2 tab Thiamine HCl (Vitamin B1 Tab) 100 mg PO DAILY [facility] Last Admin: 04/17/17 10:24 Dose: 100 mg - Labs Labs: 04/06/17 05:45 04/10/17 08:00 - Respiratory Exam Respiratory Exam: Clear to Ausculation Bilateral - Cardiovascular Exam Cardiovascular Exam: REGULAR RHYTHM, +S1, +S2 - Extremities Exam Extremities Exam: Normal Inspection Assessment and Plan - Assessment and Plan (Free Text) Assessment: S/P RIGHT HIP REPLACEMENT' COPD Plan: CONTINUE BRONCHODILATORS CONTINUE PHYSICAL THERAPY
--- NOTE | 2017-04-17 19:35 | CP.PCM.PN ---
Subjective - Date & Time of Evaluation Date of Evaluation: 04/17/17 Time of Evaluation: 12:30 - Subjective Subjective: no acute complaints Objective - Vital Signs/Intake and Output Vital Signs (last 24 hours): Temp Pulse Resp BP Pulse Ox 97.3 F L 80 20 101/55 L 95 04/17/17 16:43 04/17/17 16:43 04/17/17 16:43 04/17/17 13:35 04/17/17 16:43 - Medications Medications: Current Medications Al Hydrox/Mg Hydrox/Simethicone (Maalox Plus 30 Ml) 30 ml PO Q6 PRN PRN Reason: Indigestion / Heartburn Last Admin: 04/08/17 16:52 Dose: 30 ml Albuterol (Ventolin Hfa 90 Mcg/Actuation (8 G)) 2 puff IH RQ6 PRN PRN Reason: Wheezing Last Admin: 04/08/17 05:41 Dose: 2 puff Albuterol/Ipratropium (Duoneb 3 Mg/0.5 Mg (3 Ml) Ud) 3 ml INH RQID [facility] Last Admin: 04/17/17 16:32 Dose: Not Given Buspirone HCl (Buspar) 5 mg PO TID [facility] Last Admin: 04/17/17 16:31 Dose: 5 mg Docusate Sodium (Colace) 100 mg PO BID [facility] Last Admin: 04/17/17 16:31 Dose: 100 mg Folic Acid (Folic Acid) 1 mg PO DAILY [facility] Last Admin: 04/17/17 10:24 Dose: 1 mg Guaifenesin/Dextromethorphan (Mucinex-Dm 600-30 Mg) 1 tab PO BID [facility] Last Admin: 04/17/17 16:31 Dose: 1 tab Lorazepam (Ativan) 0.5 mg PO TID PRN PRN Reason: Anxiety Last Admin: 04/17/17 01:26 Dose: 0.5 mg Nicotine (Nicoderm Cq) 1 patch TD DAILY [facility] Last Admin: 04/17/17 10:24 Dose: 1 patch Oxycodone/Acetaminophen (Percocet 5/325 Mg Tab) 1 tab PO Q4 PRN PRN Reason: Pain, Mild (1-3) Stop: 04/18/17 17:27 Oxycodone/Acetaminophen (Percocet 5/325 Mg Tab) 2 tab PO Q4 PRN PRN Reason: Pain, moderate (4-7) Stop: 04/18/17 17:28 Last Admin: 04/15/17 18:03 Dose: 2 tab Thiamine HCl (Vitamin B1 Tab) 100 mg PO DAILY [facility] Last Admin: 04/17/17 10:24 Dose: 100 mg - Labs Labs: 04/06/17 05:45 04/10/17 08:00 - Head Exam Head Exam: ATRAUMATIC, NORMAL INSPECTION, NORMOCEPHALIC - Eye Exam Eye Exam: EOMI Pupil Exam: NORMAL ACCOMODATION - Respiratory Exam Respiratory Exam: Clear to Ausculation Bilateral - Cardiovascular Exam Cardiovascular Exam: REGULAR RHYTHM - GI/Abdominal Exam GI & Abdominal Exam: Normal Bowel Sounds - Rectal Exam Rectal Exam: NORMAL INSPECTION - Exam External exam: NORMAL EXTERNAL EXAM - Extremities Exam Extremities Exam: Full ROM, Normal Capillary Refill - Back Exam Back Exam: NORMAL INSPECTION - Neurological Exam Neurological Exam: Alert, Awake Neuro motor strength exam: Left Upper Extremity: 4, Right Upper Extremity: 4, Left Lower Extremity: 4, Right Lower Extremity: 3 - Psychiatric Exam Psychiatric exam: Normal Affect Assessment and Plan (1) Alcoholism Status: Acute (2) COPD (chronic obstructive pulmonary disease) Status: Chronic (3) Dyspnea Status: Acute (4) Hip fracture, right Status: Acute (5) Lung abscess Status: Acute (6) Prophylactic measure Status: Acute (7) Weight loss Status: Acute - Assessment and Plan (Free Text) Assessment: right hip surgery removed cooper for Dc with supportive services follow up with orth and PMD
[2017-04-17] MEDS: Oxycodone/Acetaminophen 5/325 mg Tab PO PRN (23:59)
[2017-04-18 05:05] LABS: HEMATOCRIT 29.6 % (35.0-51.0); MEAN CELL VOLUME 96.4 fl (80.0-94.0); MEAN CORPUSCULAR HEMOGLOBIN 31.8 pg (27.0-31.0); RED CELL DISTRIBUTION WIDTH 14.6 % (11.5-14.5); WHITE BLOOD COUNT 7.4 K/uL (4.8-10.8)
[2017-04-18 05:10] LABS: BLOOD UREA NITROGEN 17 mg/dl (9-20); CARBON DIOXIDE 24 mmol/L (22-30); CHLORIDE 102 mmol/L (98-107); GFR AFRICAN-AMERICAN > 60; GLUCOSE,RANDOM 88 mg/dL (75-110); POTASSIUM 4.3 MMOL/L (3.6-5.0); SODIUM 133 mmol/l (132-148)
[2017-04-18] MEDS: Albuterol-Ipratrop 3 mg / 0.5 (3 ml) UD INH SCH ×2 (07:46→11:02)
[2017-04-18 08:00] VITALS: BP 102/60; PULSE 74; TEMP 97.7; O2SAT 99
[2017-04-18] MEDS: guaiFENesin-DM 600-30 mg ER Tab PO SCH (08:20)
--- NOTE | 2017-04-18 11:05 | CP.PCM.PN ---
Subjective - Date & Time of Evaluation Date of Evaluation: 04/18/17 Time of Evaluation: 10:30 - Subjective Subjective: NO CHEST PAIN OR SOB Objective - Vital Signs/Intake and Output Vital Signs (last 24 hours): Temp Pulse Resp BP Pulse Ox 97.7 F 74 20 102/60 99 04/18/17 07:59 04/18/17 07:59 04/18/17 07:59 04/18/17 07:59 04/18/17 07:59 - Medications Medications: Current Medications Al Hydrox/Mg Hydrox/Simethicone (Maalox Plus 30 Ml) 30 ml PO Q6 PRN PRN Reason: Indigestion / Heartburn Last Admin: 04/08/17 16:52 Dose: 30 ml Albuterol (Ventolin Hfa 90 Mcg/Actuation (8 G)) 2 puff IH RQ6 PRN PRN Reason: Wheezing Last Admin: 04/08/17 05:41 Dose: 2 puff Albuterol/Ipratropium (Duoneb 3 Mg/0.5 Mg (3 Ml) Ud) 3 ml INH RQID [facility] Last Admin: 04/18/17 11:02 Dose: Not Given Buspirone HCl (Buspar) 5 mg PO TID [facility] Last Admin: 04/18/17 08:20 Dose: 5 mg Docusate Sodium (Colace) 100 mg PO BID [facility] Last Admin: 04/18/17 08:20 Dose: 100 mg Folic Acid (Folic Acid) 1 mg PO DAILY [facility] Last Admin: 04/18/17 08:20 Dose: 1 mg Guaifenesin/Dextromethorphan (Mucinex-Dm 600-30 Mg) 1 tab PO BID [facility] Last Admin: 04/18/17 08:20 Dose: 1 tab Lorazepam (Ativan) 0.5 mg PO TID PRN PRN Reason: Anxiety Last Admin: 04/17/17 01:26 Dose: 0.5 mg Nicotine (Nicoderm Cq) 1 patch TD DAILY [facility] Last Admin: 04/18/17 08:19 Dose: 1 patch Oxycodone/Acetaminophen (Percocet 5/325 Mg Tab) 1 tab PO Q4 PRN PRN Reason: Pain, Mild (1-3) Stop: 04/18/17 17:27 Oxycodone/Acetaminophen (Percocet 5/325 Mg Tab) 2 tab PO Q4 PRN PRN Reason: Pain, moderate (4-7) Stop: 04/18/17 17:28 Last Admin: 04/17/17 23:59 Dose: 2 tab Thiamine HCl (Vitamin B1 Tab) 100 mg PO DAILY [facility] Last Admin: 04/18/17 08:20 Dose: 100 mg - Labs Labs: 04/18/17 04:30 04/18/17 04:30 - Respiratory Exam Respiratory Exam: Clear to Ausculation Bilateral - Cardiovascular Exam Cardiovascular Exam: REGULAR RHYTHM, +S1, +S2 - Extremities Exam Extremities Exam: Normal Inspection Assessment and Plan - Assessment and Plan (Free Text) Assessment: S/P FALL WITH RIGHT HIP FRACTURE AND THR COPD BENIGN PVCS Plan: PATIENT TO BE DISCHARGED TO HOME TODAY
== END 2017-04-18 12:20 | disposition home health service (06) | DRG 560 ==
LOC: H.TCU 16:20
PROVIDERS: ADMIT Internal Medicine; ATTEND Internal Medicine
PROC: F07M6FZ Therapeutic Exercise Treatment of Musculoskeletal System - Whole Body using Assistive, Adaptive, Supportive or Protective Equipment (ICD-10-PCS; principal; 2017-04-05)
PROC: F08Z4FZ Home Management Treatment using Assistive, Adaptive, Supportive or Protective Equipment (ICD-10-PCS; 2017-04-05)
PROC: 3E0F7GC Introduction of Other Therapeutic Substance into Respiratory Tract, Via Natural or Artificial Opening (ICD-10-PCS; 2017-04-05)
PROC: F07Z9FZ Gait Training/Functional Ambulation Treatment using Assistive, Adaptive, Supportive or Protective Equipment (ICD-10-PCS; 2017-04-05)
DX: Z47.1 Aftercare following joint replacement surgery (principal); D62 Acute posthemorrhagic anemia; E87.0 Hyperosmolality and hypernatremia; E87.70 Fluid overload, unspecified; E22.2 Syndrome of inappropriate secretion of antidiuretic hormone; G62.9 Polyneuropathy, unspecified; D50.0 Iron deficiency anemia secondary to blood loss (chronic); F10.20 Alcohol dependence, uncomplicated; F32.9 Major depressive disorder, single episode, unspecified; Z96.641 Presence of right artificial hip joint; F17.200 Nicotine dependence, unspecified, uncomplicated; I49.3 Ventricular premature depolarization; J44.9 Chronic obstructive pulmonary disease, unspecified; K59.00 Constipation, unspecified; N50.89 Other specified disorders of the male genital organs; Z90.49 Acquired absence of other specified parts of digestive tract; Z91.81 History of falling